=== PATIENT | male | born 1985 | race Caucasian/White ===

== ENCOUNTER 2019-05-31 17:41 | Inpatient (IN) ==
[~2019-05-31 17:41] MED LIST: RAPID SEQUENCE INDUCTION BAG ONE
[2019-05-31] MEDS ORDERED: KETAMINE HCL INJ 50 MG/ML 10 ML VIAL ONE (17:46)
[2019-05-31] MEDS ORDERED: LORazepam 2 MG/4 ML VIAL ONE (17:48)
[2019-05-31 18:00] LABS: Basophils # (auto) 0.06 K/uL (0-0.2); Basophils % (auto) 0.4 %; Eosinophils # (auto) 0.01 K/uL (0-0.5); Eosinophils % (auto) 0.1 %; Hematocrit (blood only) 42.9 % (42-52); Hemoglobin 14.6 g/dL (14.0-18.0); Immature Granulocytes # (auto) 0.21 K/uL (0.00-0.02); Immature Granulocytes % (auto) 1.4 %; Lymphocytes # (auto) 1.03 K/uL (1.2-3.4); Lymphocytes % (auto) 6.7 %; Mean Corpuscular Hemoglobin 28.3 pg (25-34); Mean Corpuscular Volume 83.1 fL (80-100); Mean Platelet Volume 9.8 fL (7.4-10.4); Monocytes # (auto) 0.54 K/uL (0.11-0.59); Monocytes % (auto) 3.5 %; Neutrophils # (auto) 13.55 K/uL (1.4-6.5); Neutrophils % (auto) 87.9 %; Platelet Count 377 K/uL (130-400); RDW Coefficient of Variation 14.8 % (11.5-14.5); RDW Standard Deviation 44.6 fL (36.4-46.3); Red Blood Count 5.16 M/uL (4.7-6.1)
[2019-05-31 18:18] LABS: Alanine Aminotransferase 34 U/L (12-78); Albumin Level 4.2 gm/dl (3.4-5.0); Aspartate Aminotransferase 26 U/L (15-37); BUN Creatinine Ratio 7.9 (10-20); Blood Urea Nitrogen 12 mg/dl (7-18); Calcium 9.7 mg/dl (8.5-10.1); Carbon Dioxide 19 mmol/L (21-32); Chloride 104 mmol/L (98-107); Est GFR (African American) 69.4; Est GFR (Non-African American) 59.9; Glucose 155 mg/dl (70-99); Magnesium 2.6 mg/dl (1.8-2.4); Potassium 3.8 mmol/L (3.5-5.1); Sodium 138 mmol/L (136-145)
[2019-05-31 18:22] LABS: D Dimer 13840 ug/L FEU (0-500)
[2019-05-31 18:23] LABS: Albumin Globulin Ratio 1.1 (0.9-2); Alkaline Phosphatase 156 U/L (45-117); Bilirubin,Total 0.5 mg/dl (0.2-1); Creatine Kinase 243 U/L (39-308); Total Protein 8.2 gm/dl (6.4-8.2); Troponin I < 0.015 ng/ml (0-0.045)
[2019-05-31] MEDS ORDERED: SODIUM CHLORIDE 0.9% 1000ML 1,000 ML IV ONE (18:23)
--- NOTE | 2019-05-31 18:33 | Emergency Department Note ---
History of Present Illness General Chief complaint: Respiratory Arrest Stated complaint: post arrest/ excited delirium Time Seen by Provider: 05/31/19 17:51 Source: patient, family and EMS Mode of arrival: EMS Limitations: altered mental status History of Present Illness Provider complaint: Left shoulder pain Onset (ago): minute(s) (Prior to arrival) Location: upper extremity Radiation: non-radiation Severity: moderate Pain Consistency: + constant Quality: + sharp Exacerbated By: + movement Associated symptoms: + chest pain, + seizure and + shortness of breath; no cough, no fever/chills, no headaches and no nausea/vomiting This is a 33-year-old male with a history of benzodiazepine and Adderall abuse presenting with a seizure. History was obtained from EMS as well as the patient once he became awake and his parents over the telephone. The patient has a prior history of seizure approximately 5 years ago. His father states that he was walking and suddenly developed a seizure. He was worked up at a [facility] hospital at this time with no determined etiology. He has not had a seizure since until today. His family states that about 2 years ago the patient collapsed at a fast food restaurant and was given Narcan and then recovered and never saw a doctor at that time. No seizure activity was noted at that time. The patient states that he does abuse Xanax but stopped using it about a week ago. The patient did drive from [place] where he lives. He has been driving 10 hours a day. He denies any leg swelling or pain. The patient has had no fever, cough or congestion. He has had no known exposure to coded. He does state that today he developed some chest pain rating to his back as well as some shortness of breath. According to his parents he was doing well yesterday and unpacked. He arrived 2 days ago. Today he seemed lethargic. His mother thought maybe he might be under the influence of drugs. He was in his room and his father thought he was looking for the cat. The patient had leaned over and then suddenly fell onto his left shoulder. He had seizure-like activity: He became very stiff and started to shake all over. This lasted about 2 to 3 minutes. Afterwards he was extremely combative. His father states that he did not appear to hit his head. The patient denies any headache or neck pain at this time. He states that his left shoulder is hurting him. EMS noted that they thought his left shoulder was dislocated and that it went back in when they transported him. The patient was extremely combative and they could not get him to the ambulance so they called me for medical command. They had not mentioned the seizure-like activity and reported to him as a respiratory arrest and possible drug abuse and so I did order 200 mg of ketamine IM for possible excited delirium. Home Medications Home Medications Medication Instructions Recorded Confirmed Type bupropion HCl [Wellbutrin XL] 300 mg PO QAM 05/31/19 05/31/19 History Allergies Allergy/AdvReac Type Severity Reaction Status Date / Time No Known Allergies Allergy Unverified 05/31/19 18:36 Past Med/Surg History Medical History (Updated 05/31/19 @ 20:04 by Jun Lamar MD) Polysubstance abuse (Acute) Social History (Updated 05/31/19 @ 18:31 by Jun Lamar MD) Current Living Situation: Alone Smoking Status: Unknown if ever smoked Hx Substance Use: Yes Review of Systems See HPI for pertinent positives & negatives. and A total of 10 systems reviewed and were otherwise negative Physical Exam Vital Signs Vital Signs - 24 hr 05/31/19 17:34 05/31/19 17:43 05/31/19 17:44 Temperature Temperature Source Pulse Rate 101 H 110 H Pulse Rate from SpO2 Sensor 103 H Respiratory Rate 18 15 Respiratory Effort / Characteristics Non-Labored Spontaneous Respiratory Depth Normal Respiratory Pattern Regular Blood Pressure 157/96 H 157/96 H Blood Pressure Mean 116 126 Pulse Oximetry 99 99 Oxygen Delivery Method Room Air Room Air Sepsis New/Unexplained Change in Mental Status Yes Sepsis Action Taken by Nursing No Action Required 05/31/19 17:51 05/31/19 18:00 05/31/19 18:10 Temperature 37.4 C Temperature Source Oral Pulse Rate 96 H 98 H Pulse Rate from SpO2 Sensor 93 H 98 H Respiratory Rate 17 19 Respiratory Effort / Characteristics Respiratory Depth Respiratory Pattern Blood Pressure 150/95 H 148/80 H Blood Pressure Mean 104 124 Pulse Oximetry 98 98 Oxygen Delivery Method Room Air Room Air Room Air Sepsis New/Unexplained Change in Mental Status Sepsis Action Taken by Nursing 05/31/19 18:15 05/31/19 18:30 05/31/19 18:56 Temperature Temperature Source Pulse Rate 97 H 95 H 90 Pulse Rate from SpO2 Sensor 97 H 93 H 92 H Respiratory Rate 21 15 14 Respiratory Effort / Characteristics Respiratory Depth Respiratory Pattern Blood Pressure 147/91 H Blood Pressure Mean 122 Pulse Oximetry 99 100 100 Oxygen Delivery Method Room Air Room Air Room Air Sepsis New/Unexplained Change in Mental Status Sepsis Action Taken by Nursing 05/31/19 19:00 05/31/19 19:10 05/31/19 19:20 Temperature Temperature Source Pulse Rate 90 94 H 87 Pulse Rate from SpO2 Sensor 89 95 H 87 Respiratory Rate 13 13 16 Respiratory Effort / Characteristics Respiratory Depth Respiratory Pattern Blood Pressure 147/91 H 169/85 H 157/95 H Blood Pressure Mean 111 117 108 Pulse Oximetry 100 100 100 Oxygen Delivery Method Room Air Room Air Room Air Sepsis New/Unexplained Change in Mental Status Sepsis Action Taken by Nursing Initial examination was severely limited at the patient was nonverbal. This exam was taken 40 minutes after arrival when the patient was more awake and alert. Constitutional: Vital signs reviewed. Eyes: Pupils are equal round reactive to light. Conjunctiva are noninjected. ENT: Pharynx is clear without erythema or exudate. Mucous membranes are moist. Neck supple without meningeal signs. No midline tenderness to the cervical spine. Respiratory: Clear to auscultation bilaterally. Breath sounds are equal bilaterally. Cardiovascular: Regular rate and rhythm. No rubs or gallops. GI: Soft, nondistended and nontender. Bowel sounds are present. Musculoskeletal: No peripheral edema. No lower extremity tenderness. Te nderness to the left shoulder. NVI distally. Integumentary: No cyanosis. or jaundice. Neurologic: The patient is awake and alert. Cranial nerves II-XII are intact. Motor is 5 out of 5 all extremities. Sensation is intact to light touch all extremities. Normal speech. Normal gait. No pronator drift. Psychiatric: Normal affect. Procedures Orthopedic Joint Reduction Joint #1: Time Out Performed: Yes Side: left Joint Reduction Location: shoulder Analgesia: other (Dilaudid 1 mg IV) Technique used: traction/counter-traction (The left arm was held in adduction with the elbow flexed at 90 degrees. I pulled traction downward while abducting and internally rotating the shoulder and the shoulder reduced easily.) Post-reduction neuro exam: intact Post-reduction vascular: intact Post Reduction X-Ray Obtained: Yes Post Reduction X-Ray Results: reduced Splint Applied: Yes Patient Tolerated Procedure: well Course Administered Medications Ioversol (Optiray 320 125ml) 119 ml IV ONCE PRN PRN Reason: Interaction Checking Stop: 06/04/19 18:38 Last Admin: 05/31/19 18:40 Dose: 119 ml Documented by: [id number] Discontinued Medications Hydromorphone HCl (Dilaudid) Confirm Administered Dose 1 mg .ROUTE .STK-MED ONE Stop: 05/31/19 19:39 Last Admin: 05/31/19 19:45 Dose: 1 mg Documented by: [id number] Sodium Chloride (Nss 1000ml) 1,000 mls @ 999 mls/hr IV .Q1H1M ONE Stop: 05/31/19 19:23 Last Infusion: 05/31/19 19:46 Dose: 0 mls/hr Documented by: [id number] Admin: 05/31/19 18:52 Dose: 999 mls/hr Documented by: [id number] Ketamine HCl (Ketalar Steri-Vial) Confirm Administered Dose 500 mg .ROUTE .STK- MED ONE Stop: 05/31/19 17:47 Last Admin: 05/31/19 17:58 Dose: Not Given Documented by: [id number] Lorazepam (Ativan) Confirm Administered Dose 2 mg .ROUTE .STK-MED ONE Stop: 05/31/19 17:49 Last Increment: 05/31/19 17:52 Dose: 1 mg Documented by: [id number] Miscellaneous () Confirm Administered Dose 1 ea .ROUTE .STK-MED ONE Stop: 05/31/19 17:31 Last Admin: 05/31/19 17:58 Dose: Not Given Documented by: [id number] Morphine Sulfate (Morphine Sulfate) 4 mg IV NOW STA Stop: 05/31/19 18:51 Last Admin: 05/31/19 18:54 Dose: 4 mg Documented by: [id number] Ondansetron HCl (Zofran) 4 mg IV NOW STA Stop: 05/31/19 18:51 Last Admin: 05/31/19 18:54 Dose: 4 mg Documented by: [id number] Critical Care Time Total Critical Care Time: 60 I have personally spent approximately 60 minutes of critical care time in the direct management of this patient with altered mental status and respiratory arrest. This includes bedside care, interpretation of diagnostic studies and testing, discussion with consultants and patient, and other required patient management activities. This time is in excess of all separately billable procedures. Medical Decision Making Differential Diagnosis Seizure, intracranial mass, intracranial hemorrhage, encephalopathy, pulmonary embolism, DVT, drug abuse Medical Records Attestation: I reviewed the patient's medical records. I did perform a limited focused review of portions of the patient's old chart on the electronic medical record. The patient has had no recent pertinent visits to this hospital. Home Medications Current Medication List: was personally reviewed by me Laboratory Data Attestation: I reviewed the patient's lab results. Result diagrams: 05/31/19 17:45 05/31/19 17:45 Lab Results 05/31/19 05/31/19 05/31/19 Range/Units 16:45 17:45 17:45 WBC (4.8-10.8) K/uL RBC (4.7-6.1) M/uL Hgb (14.0-18.0) g/dL Hct (42-52) % MCV (80-100) fL MCH (25-34) pg MCHC (32-36) g/dL RDW Std Deviation (36.4-46.3) fL RDW Coeff of Stiven (11.5-14.5) % Plt Count (130-400) K/uL MPV (7.4-10.4) fL Immature Gran % (Auto) % Neut % (Auto) % Lymph % (Auto) % Schleicher % (Auto) % Eos % (Auto) % Baso % (Auto) % Immature Gran # (Auto) (0.00-0.02) K/uL Neut # (Auto) (1.4-6.5) K/uL Lymph # (Auto) (1.2-3.4) K/uL Schleicher # (Auto) (0.11-0.59) K/uL Eos # (Auto) (0-0.5) K/uL Baso # (Auto) (0-0.2) K/uL D-Dimer 53705 H* (0-500) ug/L FEU Sodium 138 (136-145) mmol/L Potassium 3.8 (3.5-5.1) mmol/L Chloride 104 (98-107) mmol/L Carbon Dioxide 19 L (21-32) mmol/L Anion Gap 15.0 H (3-11) BUN 12 (7-18) mg/dl Creatinine 1.50 H (0.6-1.4) mg/dl Est Cr Clr Drug Dosing Not Reportable Est GFR ( Amer) 69.4 Est GFR (Non-Af Amer) 59.9 BUN/Creatinine Ratio 7.9 L (10-20) Glucose 155 H (70-99) mg/dl POC Glucose (70-99) mg/dl Lactate (0.4-2.0) mmol/L Calcium 9.7 (8.5-10.1) mg/dl Magnesium 2.6 H (1.8-2.4) mg/dl Total Bilirubin 0.5 (0.2-1) mg/dl AST 26 (15-37) U/L ALT 34 (12-78) U/L Alkaline Phosphatase 156 H (45-117) U/L Lactate Dehydrogenase (87-241) U/L Total Creatine Kinase 243 (39-308) U/L Troponin I < 0.015 (0-0.045) ng/ml Total Protein 8.2 (6.4-8.2) gm/dl Albumin 4.2 (3.4-5.0) gm/dl Globulin 4.0 (2.5-4.0) gm/dl Albumin/Globulin Ratio 1.1 (0.9-2) Procalcitonin (0-0.5) ng/ml Urine Color Urine Appearance (Clear) Urine pH (4.5-7.5) Ur Specific [place] (1.000-1.030) Urine Protein (Negative) Urine Glucose (UA) (Negative) Urine Ketones (Negative) Urine Blood (Negative) Urine Nitrite (Negative) Urine Bilirubin (Negative) Urine Urobilinogen (Negative) Ur Leukocyte Esterase (Negative) Urine WBC (Auto) (0-5) /hpf Urine RBC (Auto) (0-4) /hpf U Hyaline Cast (Auto) (0-5) /lpf U Epithel Cells (Auto) (0-5) /lpf Urine Bacteria (Auto) (Negative) Urine Sperm (None Prsent) Salicylates (2.8-20) mg/dl Urine Opiates Screen (Neg) Ur Methadone, Qual (Neg) Acetaminophen (10-30) ug/ml Urine Barbiturates (Neg) Ur Phencyclidine (PCP) (Neg) U Amphetamin/Meth Scrn (Neg) MDMA (Ecstasy) Screen (Neg) U Benzodiazepines Scrn (Neg) Ur Cocaine Metabolite (Neg) U Marijuana (THC) Screen (Neg) Ethyl Alcohol mg/dL (0-3) mg/dl Adenovirus (PCR) (NotDetected) B. pertussis DNA (PCR) (NotDetected) B.parapertussis DNA PCR (NotDetected) C. pneumoniae DNA (PCR) (NotDetected) Coronavirus OC43 (PCR) (NotDetected) Coronavirus HKU1 (PCR) (NotDetected) Coronavirus 229E (PCR) (NotDetected) Coronavirus NL63 (PCR) (NotDetected) Human Metapneumovir PCR (NotDetected) Influenza Type A (PCR) (NotDetected) Influenza Type B (PCR) (NotDetected) M. pneumoniae (PCR) (NotDetected) Parainfluenza 1 (PCR) (NotDetected) Parainfluenza 2 (PCR) (NotDetected) Parainfluenza 3 (PCR) (NotDetected) Parainfluenza 4 (PCR) (NotDetected) RSV (PCR) (NotDetected) Entero/Rhino (PCR) (NotDetected) 05/31/19 05/31/19 05/31/19 Range/Units 17:45 17:45 17:45 WBC 15.40 H (4.8-10.8) K/uL RBC 5.16 (4.7-6.1) M/uL Hgb 14.6 (14.0-18.0) g/dL Hct 42.9 (42-52) % MCV 83.1 (80-100) fL MCH 28.3 (25-34) pg MCHC 34.0 (32-36) g/dL RDW Std Deviation 44.6 (36.4-46.3) fL RDW Coeff of Stiven 14.8 H (11.5-14.5) % Plt Count 377 (130-400) K/uL MPV 9.8 (7.4-10.4) fL Immature Gran % (Auto) 1.4 % Neut % (Auto) 87.9 % Lymph % (Auto) 6.7 % Schleicher % (Auto) 3.5 % Eos % (Auto) 0.1 % Baso % (Auto) 0.4 % Immature Gran # (Auto) 0.21 H (0.00-0.02) K/uL Neut # (Auto) 13.55 H (1.4-6.5) K/uL Lymph # (Auto) 1.03 L (1.2-3.4) K/uL Schleicher # (Auto) 0.54 (0.11-0.59) K/uL Eos # (Auto) 0.01 (0-0.5) K/uL Baso # (Auto) 0.06 (0-0.2) K/uL D-Dimer (0-500) ug/L FEU Sodium (136-145) mmol/L Potassium (3.5-5.1) mmol/L Chloride (98-107) mmol/L Carbon Dioxide (21-32) mmol/L Anion Gap (3-11) BUN (7-18) mg/dl Creatinine (0.6-1.4) mg/dl Est Cr Clr Drug Dosing Est GFR ( Amer) Est GFR (Non-Af Amer) BUN/Creatinine Ratio (10-20) Glucose (70-99) mg/dl POC Glucose (70-99) mg/dl Lactate (0.4-2.0) mmol/L Calcium (8.5-10.1) mg/dl Magnesium (1.8-2.4) mg/dl Total Bilirubin (0.2-1) mg/dl AST (15-37) U/L ALT (12-78) U/L Alkaline Phosphatase (45-117) U/L Lactate Dehydrogenase 342 H (87-241) U/L Total Creatine Kinase (39-308) U/L Troponin I (0-0.045) ng/ml Total Protein (6.4-8.2) gm/dl Albumin (3.4-5.0) gm/dl Globulin (2.5-4.0) gm/dl Albumin/Globulin Ratio (0.9-2) Procalcitonin < 0.05 (0-0.5) ng/ml Urine Color Urine Appearance (Clear) Urine pH (4.5-7.5) Ur Specific [place] (1.000-1.030) Urine Protein (Negative) Urine Glucose (UA) (Negative) Urine Ketones (Negative) Urine Blood (Negative) Urine Nitrite (Negative) Urine Bilirubin (Negative) Urine Urobilinogen (Negative) Ur Leukocyte Esterase (Negative) Urine WBC (Auto) (0-5) /hpf Urine RBC (Auto) (0-4) /hpf U Hyaline Cast (Auto) (0-5) /lpf U Epithel Cells (Auto) (0-5) /lpf Urine Bacteria (Auto) (Negative) Urine Sperm (None Prsent) Salicylates (2.8-20) mg/dl Urine Opiates Screen (Neg) Ur Methadone, Qual (Neg) Acetaminophen (10-30) ug/ml Urine Barbiturates (Neg) Ur Phencyclidine (PCP) (Neg) U Amphetamin/Meth Scrn (Neg) MDMA (Ecstasy) Screen (Neg) U Benzodiazepines Scrn (Neg) Ur Cocaine Metabolite (Neg) U Marijuana (THC) Screen (Neg) Ethyl Alcohol mg/dL (0-3) mg/dl Adenovirus (PCR) (NotDetected) B. pertussis DNA (PCR) (NotDetected) B.parapertussis DNA PCR (NotDetected) C. pneumoniae DNA (PCR) (NotDetected) Coronavirus OC43 (PCR) (NotDetected) Coronavirus HKU1 (PCR) (NotDetected) Coronavirus 229E (PCR) (NotDetected) Coronavirus NL63 (PCR) (NotDetected) Human Metapneumovir PCR (NotDetected) Influenza Type A (PCR) (NotDetected) Influenza Type B (PCR) (NotDetected) M. pneumoniae (PCR) (NotDetected) Parainfluenza 1 (PCR) (NotDetected) Parainfluenza 2 (PCR) (NotDetected) Parainfluenza 3 (PCR) (NotDetected) Parainfluenza 4 (PCR) (NotDetected) RSV (PCR) (NotDetected) Entero/Rhino (PCR) (NotDetected) 05/31/19 05/31/19 05/31/19 Range/Units 17:45 17:54 17:55 WBC (4.8-10.8) K/uL RBC (4.7-6.1) M/uL Hgb (14.0-18.0) g/dL Hct (42-52) % MCV (80-100) fL MCH (25-34) pg MCHC (32-36) g/dL RDW Std Deviation (36.4-46.3) fL RDW Coeff of Stiven (11.5-14.5) % Plt Count (130-400) K/uL MPV (7.4-10.4) fL Immature Gran % (Auto) % Neut % (Auto) % Lymph % (Auto) % Schleicher % (Auto) % Eos % (Auto) % Baso % (Auto) % Immature Gran # (Auto) (0.00-0.02) K/uL Neut # (Auto) (1.4-6.5) K/uL Lymph # (Auto) (1.2-3.4) K/uL Schleicher # (Auto) (0.11-0.59) K/uL Eos # (Auto) (0-0.5) K/uL Baso # (Auto) (0-0.2) K/uL D-Dimer (0-500) ug/L FEU Sodium (136-145) mmol/L Potassium (3.5-5.1) mmol/L Chloride (98-107) mmol/L Carbon Dioxide (21-32) mmol/L Anion Gap (3-11) BUN (7-18) mg/dl Creatinine (0.6-1.4) mg/dl Est Cr Clr Drug Dosing Est GFR ( Amer) Est GFR (Non-Af Amer) BUN/Creatinine Ratio (10-20) Glucose (70-99) mg/dl POC Glucose 158 H (70-99) mg/dl Lactate (0.4-2.0) mmol/L Calcium (8.5-10.1) mg/dl Magnesium (1.8-2.4) mg/dl Total Bilirubin (0.2-1) mg/dl AST (15-37) U/L ALT (12-78) U/L Alkaline Phosphatase (45-117) U/L Lactate Dehydrogenase (87-241) U/L Total Creatine Kinase (39-308) U/L Troponin I (0-0.045) ng/ml Total Protein (6.4-8.2) gm/dl Albumin (3.4-5.0) gm/dl Globulin (2.5-4.0) gm/dl Albumin/Globulin Ratio (0.9-2) Procalcitonin (0-0.5) ng/ml Urine Color Urine Appearance (Clear) Urine pH (4.5-7.5) Ur Specific [place] (1.000-1.030) Urine Protein (Negative) Urine Glucose (UA) (Negative) Urine Ketones (Negative) Urine Blood (Negative) Urine Nitrite (Negative) Urine Bilirubin (Negative) Urine Urobilinogen (Negative) Ur Leukocyte Esterase (Negative) Urine WBC (Auto) (0-5) /hpf Urine RBC (Auto) (0-4) /hpf U Hyaline Cast (Auto) (0-5) /lpf U Epithel Cells (Auto) (0-5) /lpf Urine Bacteria (Auto) (Negative) Urine Sperm (None Prsent) Salicylates < 1.7 L (2.8-20) mg/dl Urine Opiates Screen (Neg) Ur Methadone, Qual (Neg) Acetaminophen < 2 L (10-30) ug/ml Urine Barbiturates (Neg) Ur Phencyclidine (PCP) (Neg) U Amphetamin/Meth Scrn (Neg) MDMA (Ecstasy) Screen (Neg) U Benzodiazepines Scrn (Neg) Ur Cocaine Metabolite (Neg) U Marijuana (THC) Screen (Neg) Ethyl Alcohol mg/dL (0-3) mg/dl Adenovirus (PCR) Not Detected (NotDetected) B. pertussis DNA (PCR) Not Detected (NotDetected) B.parapertussis DNA PCR Not Detected (NotDetected) C. pneumoniae DNA (PCR) Not Detected (NotDetected) Coronavirus OC43 (PCR) Not Detected (NotDetected) Coronavirus HKU1 (PCR) Not Detected (NotDetected) Coronavirus 229E (PCR) Not Detected (NotDetected) Coronavirus NL63 (PCR) Not Detected (NotDetected) Human Metapneumovir PCR Not Detected (NotDetected) Influenza Type A (PCR) Not Detected (NotDetected) Influenza Type B (PCR) Not Detected (NotDetected) M. pneumoniae (PCR) Not Detected (NotDetected) Parainfluenza 1 (PCR) Not Detected (NotDetected) Parainfluenza 2 (PCR) Not Detected (NotDetected) Parainfluenza 3 (PCR) Not Detected (NotDetected) Parainfluenza 4 (PCR) Not Detected (NotDetected) RSV (PCR) Not Detected (NotDetected) Entero/Rhino (PCR) Not Detected (NotDetected) 05/31/19 05/31/19 05/31/19 Range/Units 18:06 18:15 18:25 WBC (4.8-10.8) K/uL RBC (4.7-6.1) M/uL Hgb (14.0-18.0) g/dL Hct (42-52) % MCV (80-100) fL MCH (25-34) pg MCHC (32-36) g/dL RDW Std Deviation (36.4-46.3) fL RDW Coeff of Stiven (11.5-14.5) % Plt Count (130-400) K/uL MPV (7.4-10.4) fL Immature Gran % (Auto) % Neut % (Auto) % Lymph % (Auto) % Schleicher % (Auto) % Eos % (Auto) % Baso % (Auto) % Immature Gran # (Auto) (0.00-0.02) K/uL Neut # (Auto) (1.4-6.5) K/uL Lymph # (Auto) (1.2-3.4) K/uL Schleicher # (Auto) (0.11-0.59) K/uL Eos # (Auto) (0-0.5) K/uL Baso # (Auto) (0-0.2) K/uL D-Dimer (0-500) ug/L FEU Sodium (136-145) mmol/L Potassium (3.5-5.1) mmol/L Chloride (98-107) mmol/L Carbon Dioxide (21-32) mmol/L Anion Gap (3-11) BUN (7-18) mg/dl Creatinine (0.6-1.4) mg/dl Est Cr Clr Drug Dosing Est GFR ( Amer) Est GFR (Non-Af Amer) BUN/Creatinine Ratio (10-20) Glucose (70-99) mg/dl POC Glucose (70-99) mg/dl Lactate 5.8 H* (0.4-2.0) mmol/L Calcium (8.5-10.1) mg/dl Magnesium (1.8-2.4) mg/dl Total Bilirubin (0.2-1) mg/dl AST (15-37) U/L ALT (12-78) U/L Alkaline Phosphatase (45-117) U/L Lactate Dehydrogenase (87-241) U/L Total Creatine Kinase (39-308) U/L Troponin I (0-0.045) ng/ml Total Protein (6.4-8.2) gm/dl Albumin (3.4-5.0) gm/dl Globulin (2.5-4.0) gm/dl Albumin/Globulin Ratio (0.9-2) Procalcitonin (0-0.5) ng/ml Urine Color Urine Appearance (Clear) Urine pH (4.5-7.5) Ur Specific [place] (1.000-1.030) Urine Protein (Negative) Urine Glucose (UA) (Negative) Urine Ketones (Negative) Urine Blood (Negative) Urine Nitrite (Negative) Urine Bilirubin (Negative) Urine Urobilinogen (Negative) Ur Leukocyte Esterase (Negative) Urine WBC (Auto) (0-5) /hpf Urine RBC (Auto) (0-4) /hpf U Hyaline Cast (Auto) (0-5) /lpf U Epithel Cells (Auto) (0-5) /lpf Urine Bacteria (Auto) (Negative) Urine Sperm (None Prsent) Salicylates (2.8-20) mg/dl Urine Opiates Screen Neg (Neg) Ur Methadone, Qual Neg (Neg) Acetaminophen (10-30) ug/ml Urine Barbiturates Neg (Neg) Ur Phencyclidine (PCP) Neg (Neg) U Amphetamin/Meth Scrn Neg (Neg) MDMA (Ecstasy) Screen Pos H (Neg) U Benzodiazepines Scrn Pos H (Neg) Ur Cocaine Metabolite Pos H (Neg) U Marijuana (THC) Screen Pos H (Neg) Ethyl Alcohol mg/dL < 3.0 (0-3) mg/dl Adenovirus (PCR) (NotDetected) B. pertussis DNA (PCR) (NotDetected) B.parapertussis DNA PCR (NotDetected) C. pneumoniae DNA (PCR) (NotDetected) Coronavirus OC43 (PCR) (NotDetected) Coronavirus HKU1 (PCR) (NotDetected) Coronavirus 229E (PCR) (NotDetected) Coronavirus NL63 (PCR) (NotDetected) Human Metapneumovir PCR (NotDetected) Influenza Type A (PCR) (NotDetected) Influenza Type B (PCR) (NotDetected) M. pneumoniae (PCR) (NotDetected) Parainfluenza 1 (PCR) (NotDetected) Parainfluenza 2 (PCR) (NotDetected) Parainfluenza 3 (PCR) (NotDetected) Parainfluenza 4 (PCR) (NotDetected) RSV (PCR) (NotDetected) Entero/Rhino (PCR) (NotDetected) 05/31/19 Range/Units 18:25 WBC (4.8-10.8) K/uL RBC (4.7-6.1) M/uL Hgb (14.0-18.0) g/dL Hct (42-52) % MCV (80-100) fL MCH (25-34) pg MCHC (32-36) g/dL RDW Std Deviation (36.4-46.3) fL RDW Coeff of Stiven (11.5-14.5) % Plt Count (130-400) K/uL MPV (7.4-10.4) fL Immature Gran % (Auto) % Neut % (Auto) % Lymph % (Auto) % Schleicher % (Auto) % Eos % (Auto) % Baso % (Auto) % Immature Gran # (Auto) (0.00-0.02) K/uL Neut # (Auto) (1.4-6.5) K/uL Lymph # (Auto) (1.2-3.4) K/uL Schleicher # (Auto) (0.11-0.59) K/uL Eos # (Auto) (0-0.5) K/uL Baso # (Auto) (0-0.2) K/uL D-Dimer (0-500) ug/L FEU Sodium (136-145) mmol/L Potassium (3.5-5.1) mmol/L Chloride (98-107) mmol/L Carbon Dioxide (21-32) mmol/L Anion Gap (3-11) BUN (7-18) mg/dl Creatinine (0.6-1.4) mg/dl Est Cr Clr Drug Dosing Est GFR ( Amer) Est GFR (Non-Af Amer) BUN/Creatinine Ratio (10-20) Glucose (70-99) mg/dl POC Glucose (70-99) mg/dl Lactate (0.4-2.0) mmol/L Calcium (8.5-10.1) mg/dl Magnesium (1.8-2.4) mg/dl Total Bilirubin (0.2-1) mg/dl AST (15-37) U/L ALT (12-78) U/L Alkaline Phosphatase (45-117) U/L Lactate Dehydrogenase (87-241) U/L Total Creatine Kinase (39-308) U/L Troponin I (0-0.045) ng/ml Total Protein (6.4-8.2) gm/dl Albumin (3.4-5.0) gm/dl Globulin (2.5-4.0) gm/dl Albumin/Globulin Ratio (0.9-2) Procalcitonin (0-0.5) ng/ml Urine Color Yellow Urine Appearance Clear (Clear) Urine pH 5.5 (4.5-7.5) Ur Specific [place] 1.018 (1.000-1.030) Urine Protein Trace H (Negative) Urine Glucose (UA) Negative (Negative) Urine Ketones 1+ H (Negative) Urine Blood Trace H (Negative) Urine Nitrite Negative (Negative) Urine Bilirubin Negative (Negative) Urine Urobilinogen Negative (Negative) Ur Leukocyte Esterase Negative (Negative) Urine WBC (Auto) 1-5 (0-5) /hpf Urine RBC (Auto) 0-4 (0-4) /hpf U Hyaline Cast (Auto) 0 (0-5) /lpf U Epithel Cells (Auto) 0-5 (0-5) /lpf Urine Bacteria (Auto) Negative (Negative) Urine Sperm Present A (None Prsent) Salicylates (2.8-20) mg/dl Urine Opiates Screen (Neg) Ur Methadone, Qual (Neg) Acetaminophen (10-30) ug/ml Urine Barbiturates (Neg) Ur Phencyclidine (PCP) (Neg) U Amphetamin/Meth Scrn (Neg) MDMA (Ecstasy) Screen (Neg) U Benzodiazepines Scrn (Neg) Ur Cocaine Metabolite (Neg) U Marijuana (THC) Screen (Neg) Ethyl Alcohol mg/dL (0-3) mg/dl Adenovirus (PCR) (NotDetected) B. pertussis DNA (PCR) (NotDetected) B.parapertussis DNA PCR (NotDetected) C. pneumoniae DNA (PCR) (NotDetected) Coronavirus OC43 (PCR) (NotDetected) Coronavirus HKU1 (PCR) (NotDetected) Coronavirus 229E (PCR) (NotDetected) Coronavirus NL63 (PCR) (NotDetected) Human Metapneumovir PCR (NotDetected) Influenza Type A (PCR) (NotDetected) Influenza Type B (PCR) (NotDetected) M. pneumoniae (PCR) (NotDetected) Parainfluenza 1 (PCR) (NotDetected) Parainfluenza 2 (PCR) (NotDetected) Parainfluenza 3 (PCR) (NotDetected) Parainfluenza 4 (PCR) (NotDetected) RSV (PCR) (NotDetected) Entero/Rhino (PCR) (NotDetected) Imaging Data Attestation: I personally reviewed and interpreted this imaging study as follows: My Impression: Postreduction x-ray of the left shoulder shows good anatomic alignment. No dislocation is noted. Impaction fracture of the humeral head noted. Radiologist's Impression: CT head/brain wo con CLINICAL HISTORY: 33 years-old Male presenting with ams, eval for bleed. TECHNIQUE: Multidetector CT imaging of the head was performed without the use of intravenous contrast. IV contrast: None. One or more dose lowering techniques were used consistent with the principles of ALARA (as low as reasonably a chievable), including automatic exposure control, mA or kV adjustment to individual patient size, and/or use of iterative reconstruction. COMPARISON: None. CT DOSE (mGy.cm): The estimated cumulative dose is 729.78 mGycm. FINDINGS: Product Marketing Director topogram: Unremarkable. Ventricles and sulci normal in size apart from anoop cisterna magna. No hemorrhage. Brain parenchyma normal in appearance with preserved ramey-white differentiation. No acute territorial infarct. No mass effect or midline shift. No extra-axial fluid collection. Limited aerated secretions in the right maxillary sinus. Calvarium intact. IMPRESSION: 1. No acute intracranial abnormality. 2. Limited aerated secretions in the right maxillary sinus. Given the limited extent, acute sinusitis is considered unlikely. ACT 112: Negative or not required by law. Electronically signed by: Chaitanya Nelson M.D. 05/31/2019 6:[address] angio chest PE protocol CLINICAL HISTORY: 33 years-old Male presenting with atypical chest pain, resp iratory arrest, CPR at home, seizure clinical concern for pulmonary embolus. TECHNIQUE: Multidetector CT angiography of the chest was performed after administration of intravenous contrast. 3-D volumetric and/or maximum intensity projection (MIP) images were subsequently reconstructed for review. IV contrast: 119 mL of Optiray 320. One or more dose lowering techniques were used consistent with the principles of ALARA (as low as reasonably achievable), including automatic exposure control, mA or kV adjustment to individual patient size, and/or use of iterative reconstruction. COMPARISON: None. CT DOSE (mGy.cm): The estimated cumulative dose is 731.68 mGycm. FINDINGS: Product Marketing Director topogram: Unremarkable. Pulmonary vasculature: The study is adequate for assessment of the pulmonary vascular tree. No filling defect within the pulmonary arteries to suggest embolus. Main pulmonary artery is not enlarged. No flattening of the interventricular septum. No intracardiac filling defect. No reflux of contrast into the hepatic veins. Remaining chest: Soft tissues: Normal thyroid and thoracic inlet. No axillary, supraclavicular, mediastinal, or hilar lymphadenopathy. Normal aorta. Normal heart size. No pericardial or pleural effusion. Upper abdomen normal. Lungs and airways: No pneumothorax. Central airways patent. Pulmonary arteries are not significantly enlarged relative to adjacent bronchi. No interlobular septal thickening. No focal infiltrate or nodule within the visualized portion of the lungs allowing for exclusion of the inferior most lung bases. Musculoskeletal: Slight compression deformities of the superior endplates of several mid to lower thoracic vertebral bodies, namely T6-T10. IMPRESSION: 1. No evidence of pulmonary embolus. 2. Subtle compression deformities of the superior endplates of T6-T10. Minimal compression fractures are not excluded. Correlate with spinal tenderness. 3. No other evidence of acute intrathoracic pathology. ACT 112: Negative or not required by law. Electronically signed by: Chaitanya Nelson M.D. 05/31/2019 7:11 PM XR shoulder LT min 2V routine CLINICAL HISTORY: 33 years-old Male presenting with fall eval for fx. TECHNIQUE: Internal rotation, external rotation, and Grashey views of the left shoulder were obtained. COMPARISON: None. FINDINGS: Glenohumeral and acromioclavicular joints congruent. The humeral head at the articular surface appears irregular and blunted suggesting an impaction deformity. The humeral head is subtly situated posterior to the glenoid suggesting posterior dislocation. Acromioclavicular joint congruent. No advanced degenerative change. No radiographic soft tissue abnormality. IMPRESSION: 1. Findings highly concerning for current or recent posterior glenohumeral joint dislocation. Axillary or transscapular Y view recommended for better assessment of suspected dislocation. 2. Morphology of the humeral head may suggest impaction fracture at the articular surface. ACT 112: Negative or not required by law. ECG Data Attestation: I personally reviewed and interpreted this ECG as follows: Indication: + chest pain Rate (beats per minute): 100 Rhythm: + normal sinus ECG Intervals/blocks: no First degree AV block and no Normal QT ECG ST segments: no ST elevation ECG Findings: no PVCs Blood Pressure Blood Pressure Findings: Elevated blood pressure Blood Pressure Disposition: Referred to patients primary care provider [facility] Narrative I did provide prehospital medical command for the patient. Initially according to EMS the patient had just arrived from [place] 2 days ago and was not feeling well today and felt warm. He then collapsed and had respiratory arrest and the family performed CPR. Upon their arrival the patient was very combative and possibly under the influence of drugs as a history of polysubstance abuse. I treated this as a possible excited delirium or encephalopathy from COVID-19 and recommended the patient be given ketamine IM. He was given 200 mg ketamine IM prior to arrival. I did evaluate the patient immediately upon arrival as noted above. Initial orders were placed. I did then call the patient's family and obtain further history. Apparently the patient drove from [place], driving about 10 hours a day. He arrived 2 days ago and was well yesterday without any complaints. Today he seemed lethargic and possibly under the influence of drugs. The patient then collapsed and had a tonic-clonic seizure lasting 2 to 3 minutes and likely became postictal afterwards. His parents stated that he did have a seizure in [place] 5 years ago of undetermined etiology. He has never been on any seizure medications. He also has a history of Xanax and Adderall abuse. His family noted that approximately 2 years ago the patient had an opiate overdose requiring Narcan but never went to the hospital at that time. IV access was established. The patient became more combative after the IV and so he was given Ativan 1 mg IV here. Seizure precautions were observed. The patient was placed on a continuous cardiac nurse. Cardiac monitoring: Indication: History of respiratory arrest and altered mental status with sedation on board Rate and rhythm: Normal sinus rhythm with a rate of 95 initial examination was very limited but about 35 minutes into his ED stay the patient became awake and alert. He stated to me that he stopped using Xanax about a week ago. He confirms that he did have a seizure in [place] 5 years ago. He denies having any flulike symptoms. He denies fever, cough, congestion or headache. He states that he has not been exposed to cope with it as far as he knows. He did mention that he developed some chest pain with radiation to his back and some shortness of breath. He denies any leg swelling or pain. I did order and personally review the patient's 12-lead EKG as described above. I did order and personally reviewed the images of the patient's shoulder x-ray as described above. He does appear to have a posterior dislocation. I did order and review the patient's blood work as noted in the electronic medical record. He has leukocytosis which may be secondary to his seizure. He has a significantly elevated d-dimer of over 13,000. He also has a negative troponin. Creatinine is slightly elevated 1.5. He was given a liter fluid bolus with normal saline IV. I did order a CT of head and CT angiogram of the chest. I did review the images myself as well as the radiology report as described above. CT of the head was negative for acute process. CT of the chest shows no evidence of pulmonary embolus. He does have subtle compression deformities of T5 to T10. On reexamination patient states that his back does not really hurt him. He has no tenderness to the midline thoracic or lumbar spine. He denies any history of trauma prior to today. He does complain of continued shoulder pain. He was initially given 4 mg of morphine and 4 mg of Zofran for pain. He is continues to have pain and so I did give him an additional Dilaudid 1 mg IV and then performed shoulder reduction as noted above. Postreduction x-ray per my interpretation demonstrates good anatomic alignment of the shoulder. He is placed in a sling. The patient noted that since he had a seizure in [place] 5 years ago he has had pain on and off to the left shoulder. I did discuss the case with the hospitalist and case management manager. Impression & Plan Seizure, Polysubstance abuse, Respiratory arrest, Closed posterior dislocation of left shoulder, Chest pain, Fracture of head of left humerus Discharge Plan Visit Data Chief Complaint: Respiratory Arrest Stated Complaint: post arrest/ excited delirium ED Provider: Jun Lamar Discharge Problem: Seizure, Polysubstance abuse, Respiratory arrest, Closed posterior dislocation of left shoulder, Chest pain, Fracture of head of left humerus Patient Disposition: Being Evaluated by Hospitalist Forms Stand Alone Forms: My [facility] Prescriptions Prescriptions: No Action bupropion HCl [Wellbutrin XL] 300 mg Tablet Extended Release 24 Hr 300 mg PO QAM RF: 0 Referrals Referrals: PCP,NO [Primary Care Provider] - Discharge Problem: Closed posterior dislocation of left shoulder Qualifiers: Encounter type: initial encounter Qualified Code(s): S43.025A - Posterior dislocation of left humerus, initial encounter Chest pain Qualifiers: Chest pain type: unspecified Qualified Code(s): R07.9 - Chest pain, unspecified Fracture of head of left humerus Qualifiers: Encounter type: initial encounter Fracture type: closed Qualified Code(s): S42.292A - Other displaced fracture of upper end of left humerus, initial encounter for closed fracture
[2019-05-31 18:34] LABS: Acetaminophen < 2 ug/ml (10-30); Salicylate < 1.7 mg/dl (2.8-20)
[2019-05-31] MEDS ORDERED: OPTIRAY 320 125ml IV PRN (18:39)
[2019-05-31] MEDS ORDERED: MoRPHine SULFATE 4 MG/ML 1 ML CARP\\VIAL IV STA (18:50)
[2019-05-31] MEDS ORDERED: ONDANSETRON INJ 2 MG/ML 2 ML VIAL IV STA (18:50)
--- NOTE | 2019-05-31 18:58 | CT Scan Report ---
CT head/brain wo con CLINICAL HISTORY: 33 years-old Male presenting with ams, eval for bleed. TECHNIQUE: Multidetector CT imaging of the head was performed without the use of intravenous contrast . IV contrast: None. One or more dose lowering techniques were used consistent with the principles of ALARA (as low as reasonably achievable), including automatic exposure control, mA or kV adjustment t o individual patient size, and/or use of iterative reconstruction. COMPARISON: None. CT DOSE (mGy.cm): The estimated cumulative dose is 729.78 mGycm. FINDINGS: Metal Wire Coating Operator topogram: Unremarkable. Ventricles and sulci normal in size apart from anoop cisterna magna. No hemorrhage. Brain parenchyma n ormal in appearance with preserved ramey-white differentiation. No acute territorial infarct. No mass effect or midline shift. No extra-axial fluid collection. Limited aerated secretions in the right max illary sinus. Calvarium intact. IMPRESSION: 1. No acute intracranial abnormality. 2. Limited aerated secretions in the right maxillary sinus. Given the limited extent, acute sinusiti s is considered unlikely. ACT 112: Negative or not required by law. Electronically signed by: Chaitanya Nelson M.D. 05/31/2019 6:57 PM
[2019-05-31 19:08] LABS: Amphetamines+Metham, Urine Neg (Neg); Barbiturates, Urine Neg (Neg); Benzodiazepine, Urine Pos (Neg); Cocaine, Urine Pos (Neg); MDMA (Ecstacy), Urine Pos (Neg); Methadone, Urine Neg (Neg); Opiate, Urine Neg (Neg); Phencyclidine, Urine Neg (Neg)
--- NOTE | 2019-05-31 19:13 | CT Scan Report ---
CT angio chest PE protocol CLINICAL HISTORY: 33 years-old Male presenting with atypical chest pain, respiratory arrest, CPR at h ome, seizure clinical concern for pulmonary embolus. TECHNIQUE: Multidetector CT angiography of the chest was performed after administration of intravenou s contrast. 3-D volumetric and/or maximum intensity projection (MIP) images were subsequently reconst ructed for review. IV contrast: 119 mL of Optiray 320. One or more dose lowering techniques were used consistent with the principles of ALARA (as low as reasonably achievable), including automatic expos ure control, mA or kV adjustment to individual patient size, and/or use of iterative reconstruction. COMPARISON: None. CT DOSE (mGy.cm): The estimated cumulative dose is 731.68 mGycm. FINDINGS: Photographic Process Worker topogram: Unremarkable. Pulmonary vasculature: The study is adequate for assessment of the pulmonary vascular tree. No filling defect within the pul monary arteries to suggest embolus. Main pulmonary artery is not enlarged. No flattening of the inter ventricular septum. No intracardiac filling defect. No reflux of contrast into the hepatic veins. Remaining chest: Soft tissues: Normal thyroid and thoracic inlet. No axillary, supraclavicular, mediastinal, or hilar lymphadenopathy. Normal aorta. Normal heart size. No pericardial or pleural effusion. Upper abdomen n ormal. Lungs and airways: No pneumothorax. Central airways patent. Pulmonary arteries are not significantly enlarged relative to adjacent bronchi. No interlobular septal thickening. No focal infiltrate or nodu le within the visualized portion of the lungs allowing for exclusion of the inferior most lung bases. Musculoskeletal: Slight compression deformities of the superior endplates of several mid to lower tho racic vertebral bodies, namely T6-T10. IMPRESSION: 1. No evidence of pulmonary embolus. 2. Subtle compression deformities of the superior endplates of T6-T10. Minimal compression fractures are not excluded. Correlate with spinal tenderness. 3. No other evidence of acute intrathoracic pathology. ACT 112: Negative or not required by law. Electronically signed by: Chaitanya Nelson M.D. 05/31/2019 7:11 PM
[2019-05-31 19:26] LABS: Appearance Urine Clear (Clear); Bacteria Urine Automated Negative (Negative); Bilirubin Urine Negative (Negative); Blood Urine Trace (Negative); Cast Urine Automated 0 /lpf (0-5); Color Urine Yellow; Epithelial Cell Urine Auto 0-5 /lpf (0-5); Glucose Urine UA Negative (Negative); Ketones Urine 1+ (Negative); Leukocyte Esterase Urine Negative (Negative); Nitrite Urine Negative (Negative); Protein Urine Trace (Negative); RBC Urine Automated 0-4 /hpf (0-4); Specific Gravity Urine 1.018 (1.000-1.030); Urobilinogen Urine Negative (Negative); pH Urine 5.5 (4.5-7.5)
--- NOTE | 2019-05-31 19:29 | XRay Report ---
XR shoulder LT min 2V routine CLINICAL HISTORY: 33 years-old Male presenting with fall eval for fx. TECHNIQUE: Internal rotation, external rotation, and Grashey views of the left shoulder were obtained . COMPARISON: None. FINDINGS: Glenohumeral and acromioclavicular joints congruent. The humeral head at the articular surface appear s irregular and blunted suggesting an impaction deformity. The humeral head is subtly situated legal receptionist ior to the glenoid suggesting posterior dislocation. Acromioclavicular joint congruent. No advanced d egenerative change. No radiographic soft tissue abnormality. IMPRESSION: 1. Findings highly concerning for current or recent posterior glenohumeral joint dislocation. Axilla ry or transscapular Y view recommended for better assessment of suspected dislocation. 2. Morphology of the humeral head may suggest impaction fracture at the articular surface. ACT 112: Negative or not required by law. Electronically signed by: Chaitanya Nelson M.D. 05/31/2019 7:27 PM
[2019-05-31 19:34] LABS: Adenovirus PCR Not Detected (NotDetected); Coronavirus 229E PCR Not Detected (NotDetected); Coronavirus HKU1 PCR Not Detected (NotDetected); Coronavirus NL63 PCR Not Detected (NotDetected); Coronavirus OC43PCR Not Detected (NotDetected); Human Metapneumovirus PCR Not Detected (NotDetected); Influenza A PCR Not Detected (NotDetected); Influenza B PCR Not Detected (NotDetected); Parainfluenza Virus 1 PCR Not Detected (NotDetected); Parainfluenza Virus 2 PCR Not Detected (NotDetected); Parainfluenza Virus 3 PCR Not Detected (NotDetected); Parainfluenza Virus 4 PCR Not Detected (NotDetected); Respiratory Syncytial VirusPCR Not Detected (NotDetected); Rhinovirus/Enterovirus PCR Not Detected (NotDetected)
[2019-05-31 19:35] LABS: Bordetella parapertussis PCR Not Detected (NotDetected); Bordetella pertussis PCR Not Detected (NotDetected); Chlamydia pneumoniae PCR Not Detected (NotDetected); Mycoplasma pneumoniae PCR Not Detected (NotDetected)
[2019-05-31] MEDS ORDERED: HYDROmorphone INJ 1 MG/ML SYRINGE ONE (19:38)
[2019-05-31 19:45] LABS: Sperm Urine Present (None Prsent)
--- NOTE | 2019-05-31 20:03 | XRay Report ---
XR shoulder LT min 2V routine CLINICAL HISTORY: 33 years-old Male presenting with post reduction with axillary or Y view. TECHNIQUE: Frontal and transscapular Y views of the left shoulder were obtained. COMPARISON: Plain radiographs from earlier today. FINDINGS: The humeral head is now congruent with the bony glenoid fossa. The humeral head at the articular surf brennan demonstrates an impaction deformity from prior posterior dislocation. No additional fracture iden tified. Acromioclavicular joint congruent. No radiographic soft tissue abnormality. IMPRESSION: 1. No residual subluxation or dislocation. 2. Impaction fracture of the articular surface of the humeral head. ACT 112: Negative or not required by law. Electronically signed by: Chaitanya Nelson M.D. 05/31/2019 8:02 PM
--- NOTE | 2019-05-31 20:53 | History & Physical Report ---
Date of Service May 31, 2019 Assessment & Plan (1) Seizure: Seizure activity- Witnessed by father at home Patient reports that his last Xanax use was 5 days ago, but that he had tapered dosing. History of seizures 5 years ago while in [place], with reported negative work-up to unknown extent. Urine drug screen with polysubstance abuse: Ecstasy (on Wellbutrin), cocaine, benzodiazepines and marijuana. Seizure activity most likely secondary to drug withdrawal, but will undergo work-up. Order EEG. To minimize healthcare exposures, will consult neurology if recurrent seizure activity. If patient has additional seizure activity this evening, will start Keppra IV Present on Admission?: Yes (2) Closed posterior dislocation of left shoulder: Reduced while in the ED. Present on Admission?: Yes (3) Polysubstance abuse: Monitor for withdrawal. Present on Admission?: Yes (4) Chest pain: Chest pain with myalgias and generalized fatigue- Patient lives in [place], and has recently traveled to [place]. Presently during the pandemic in the [place], patient will be considered COVID risk. His influenza and bio fire testing are completely negative. We will continue patient in negative pressure room, and order COVID testing. Present on Admission?: Yes (5) Myalgia: See above Present on Admission?: Yes (6) Fracture of head of left humerus: Associated with shoulder dislocation, can follow-up with orthopedics in the outpatient setting, unless symptoms progress. Present on Admission?: Yes History of Present Illness Chief Complaint: The patient presents to the emergency department via ambulance after having a witnessed seizure at home by his father. Primary Care Provider: NO PCP The patient is a 33-year-old male with a past medical history including benzodiazepine and Adderall abuse, with history of seizure 5 years ago in [place], who reports he was talking to his father, and last remembers was leaning forward, and then was told by his father later on that he had fallen forward onto his left shoulder and began to have a seizure. At the time of my ex amination, the patient is able to relate his history before and after the seizure, but does not remember the seizure events themselves. He was in [place] 5 days ago, where he lives, and had been driving 10 hours/day back to [place] to visit family. The patient has a history of polysubstance abuse, and reports that he had tapered himself off of Xanax and his last dosing was 5 days ago. In emergency department, work-up included a CT scan of the head that was negative for bleed, and chest CTA which showed no evidence of pulmonary embolus, there was subtle compression deformities of the superior endplates of T6-T10 with minimal compression fractures not excluded. There was no other evidence of acute intrathoracic pathology. His left shoulder x-ray did show a recent posterior gl enohumeral joint dislocation, that was reduced while in the ED, with suggestion of a impaction fracture at the articular surface of the humeral head. Laboratory evaluation significant for WBC 15.40, d-dimer 61250, creatinine 1.50, glucose 155 and LDH 342. Urine drug screen was positive for: Ecstasy, benzodiazepines, cocaine and marijuana. The patient's initial report by EMS to the ED, was that the patient underwent a respiratory arrest, as the patient's family felt that he had stopped breathing during the seizure activity, and began chest compressions. Upon questioning of the patient, as to how he had been feeling over the past several days, he reports that he has been having some chest discomfort across his sternum, and some generalized muscle aches and joint aches. He was also noted to be febrile to temperature 99.3 upon arrival to the ED. He was initially placed under COVID precautions, which were briefly relaxed by the ED, but reinstituted by me when I reviewed his history over the past several days. Allergies Allergy/AdvReac Type Severity Reaction Status Date / Time No Known Allergies Allergy Unverified 05/31/19 18:36 Home Medications Home Medications Medication Instructions Recorded Confirmed Type bupropion HCl [Wellbutrin XL] 300 mg PO QAM 05/31/19 05/31/19 History Past Med/Surg History Medical History (Updated 06/01/19 @ 02:41 by Lucio Collazo MD) Polysubstance abuse (Acute) Social History (Updated 05/31/19 @ 18:31 by Jun Lamar MD) Preferred Language: Tongan Communication Ability: Effective Beliefs That Will Affect Care: None Current Living Situation: Family Other Information That Helps Us Care for You: No Feels Safe at Home: Yes Safety Concerns: Feels Safe At This Time Smoking Status: Former smoker Hx Alcohol Use: Yes Hx Substance Use: Yes substance use type: marijuana, amphetamines, sedatives and prescription drug Last Used Substance: Just Prior to Arrival Review of Systems Review of Systems: The patient denies palpitations, cough, lower extremity swelling, sore throat, fevers, chills, sweats, weight change, fatigue, nausea, vomiting, diarrhea , constipation, abdominal pain, pelvic pain, blood in urine or stool, dysuria, urinary frequency or urgency, lightheadedness, dizziness, headache, rash, abnormal bruising or bleeding, imbalance, focal weakness, numbness or tingling in arms or legs, back or neck pain, or night sweats. The review of systems is otherwise negative other than for that already noted above, and at least 10 systems have been reviewed. Physical Exam Physical Exam: The patient is awake, alert and oriented 3, normocephalic and atraumatic, lying in bed and in no acute distress. HEENT--PERRL, EOMI, mucous membranes and oropharynx dry. Neck--supple. No JVD. No bruits. Thyroid normal, trachea midline, no adenopathy. Heart--normal S1 and S2. No murmurs, rubs or gallops. Lungs--clear bilaterally, no respiratory distress, no accessory muscle use. Abdomen--normal bowel sounds and soft. Nontender. Nondistended, no hernias or masses, no organomegaly. Extremities--no cyanosis or clubbing. No edema. Dermatologic--normal skin turgor, normal color, no abnormal lymph nodes, no rash. Neurologic--cranial nerves II through XII grossly intact. Rheumatologic--normal range of motion. Psychiatric--normal affect. Results & Data Results & Data ([facility]) Vital Signs (Past 12 Hours) Vital Signs Temp Pulse Resp BP Pulse Ox 05/31/19 19:20 87 16 157/95 H 100 05/31/19 19:10 94 H 13 169/85 H 100 05/31/19 19:00 90 13 147/91 H 100 05/31/19 18:56 90 14 147/91 H 100 05/31/19 18:30 95 H 15 100 05/31/19 18:15 97 H 21 99 05/31/19 18:10 98 H 19 148/80 H 98 05/31/19 18:00 96 H 17 150/95 H 98 05/31/19 17:51 99.3 F 05/31/19 17:44 110 H 15 157/96 H 99 05/31/19 17:43 101 H 18 157/96 H 99 Laboratory Results Laboratory Results WBC 15.40 K/uL (4.8-10.8) H 05/31/19 17:45 RBC 5.16 M/uL (4.7-6.1) 05/31/19 17:45 Hgb 14.6 g/dL (14.0-18.0) 05/31/19 17:45 Hct 42.9 % (42-52) 05/31/19 17:45 MCV 83.1 fL (80-100) 05/31/19 17:45 MCH 28.3 pg (25-34) 05/31/19 17:45 MCHC 34.0 g/dL (32-36) 05/31/19 17:45 RDW Std Deviation 44.6 fL (36.4-46.3) 05/31/19 17:45 RDW Coeff of Stiven 14.8 % (11.5-14.5) H 05/31/19 17:45 Plt Count 377 K/uL (130-400) 05/31/19 17:45 MPV 9.8 fL (7.4-10.4) 05/31/19 17:45 Immature Gran % (Auto) 1.4 % 05/31/19 17:45 Neut % (Auto) 87.9 % 05/31/19 17:45 Lymph % (Auto) 6.7 % 05/31/19 17:45 Bracken % (Auto) 3.5 % 05/31/19 17:45 Eos % (Auto) 0.1 % 05/31/19 17:45 Baso % (Auto) 0.4 % 05/31/19 17:45 Immature Gran # (Auto) 0.21 K/uL (0.00-0.02) H 05/31/19 17:45 Neut # (Auto) 13.55 K/uL (1.4-6.5) H 05/31/19 17:45 Lymph # (Auto) 1.03 K/uL (1.2-3.4) L 05/31/19 17:45 Bracken # (Auto) 0.54 K/uL (0.11-0.59) 05/31/19 17:45 Eos # (Auto) 0.01 K/uL (0-0.5) 05/31/19 17:45 Baso # (Auto) 0.06 K/uL (0-0.2) 05/31/19 17:45 D-Dimer 62105 ug/L FEU (0-500) H* 05/31/19 17:45 Sodium 138 mmol/L (136-145) 05/31/19 17:45 Potassium 3.8 mmol/L (3.5-5.1) 05/31/19 17:45 Chloride 104 mmol/L (98-107) 05/31/19 17:45 Carbon Dioxide 19 mmol/L (21-32) L 05/31/19 17:45 Anion Gap 15.0 (3-11) H 05/31/19 17:45 BUN 12 mg/dl (7-18) 05/31/19 17:45 Creatinine 1.50 mg/dl (0.6-1.4) H 05/31/19 17:45 Est Cr Clr Drug Dosing Not Reportable 05/31/19 16:45 Est GFR ( Amer) 69.4 05/31/19 17:45 Est GFR (Non-Af Amer) 59.9 05/31/19 17:45 BUN/Creatinine Ratio 7.9 (10-20) L 05/31/19 17:45 Glucose 155 mg/dl (70-99) H 05/31/19 17:45 POC Glucose 158 mg/dl (70-99) H 05/31/19 17:54 Lactate 1.0 mmol/L (0.4-2.0) 05/31/19 20:55 Calcium 9.7 mg/dl (8.5-10.1) 05/31/19 17:45 Magnesium 2.6 mg/dl (1.8-2.4) H 05/31/19 17:45 Total Bilirubin 0.5 mg/dl (0.2-1) 05/31/19 17:45 AST 26 U/L (15-37) 05/31/19 17:45 ALT 34 U/L (12-78) 05/31/19 17:45 Alkaline Phosphatase 156 U/L (45-117) H 05/31/19 17:45 Lactate Dehydrogenase 342 U/L (87-241) H 05/31/19 17:45 Total Creatine Kinase 243 U/L (39-308) 05/31/19 17:45 Troponin I < 0.015 ng/ml (0-0.045) 05/31/19 17:45 Total Protein 8.2 gm/dl (6.4-8.2) 05/31/19 17:45 Albumin 4.2 gm/dl (3.4-5.0) 05/31/19 17:45 Globulin 4.0 gm/dl (2.5-4.0) 05/31/19 17:45 Albumin/Globulin Ratio 1.1 (0.9-2) 05/31/19 17:45 Procalcitonin < 0.05 ng/ml (0-0.5) 05/31/19 17:45 Urine Color Yellow 05/31/19 18:25 Urine Appearance Clear (Clear) 05/31/19 18:25 Urine pH 5.5 (4.5-7.5) 05/31/19 18:25 Ur Specific [place] 1.018 (1.000-1.030) 05/31/19 18:25 Urine Protein Trace (Negative) H 05/31/19 18:25 Urine Glucose (UA) Negative (Negative) 05/31/19 18:25 Urine Ketones 1+ (Negative) H 05/31/19 18:25 Urine Blood Trace (Negative) H 05/31/19 18:25 Urine Nitrite Negative (Negative) 05/31/19 18:25 Urine Bilirubin Negative (Negative) 05/31/19 18:25 Urine Urobilinogen Negative (Negative) 05/31/19 18:25 Ur Leukocyte Esterase Negative (Negative) 05/31/19 18:25 Urine WBC (Auto) 1-5 /hpf (0-5) 05/31/19 18:25 Urine RBC (Auto) 0-4 /hpf (0-4) 05/31/19 18:25 U Hyaline Cast (Auto) 0 /lpf (0-5) 05/31/19 18:25 U Epithel Cells (Auto) 0-5 /lpf (0-5) 05/31/19 18:25 Urine Bacteria (Auto) Negative (Negative) 05/31/19 18:25 Urine Sperm Present (None Prsent) A 05/31/19 18:25 Salicylates < 1.7 mg/dl (2.8-20) L 05/31/19 17:45 Urine Opiates Screen Neg (Neg) 05/31/19 18:25 Ur Methadone, Qual Neg (Neg) 05/31/19 18:25 Acetaminophen < 2 ug/ml (10-30) L 05/31/19 17:45 Urine Barbiturates Neg (Neg) 05/31/19 18:25 Ur Phencyclidine (PCP) Neg (Neg) 05/31/19 18:25 U Amphetamin/Meth Scrn Neg (Neg) 05/31/19 18:25 MDMA (Ecstasy) Screen Pos (Neg) H 05/31/19 18:25 U Benzodiazepines Scrn Pos (Neg) H 05/31/19 18:25 Ur Cocaine Metabolite Pos (Neg) H 05/31/19 18:25 U Marijuana (THC) Screen Pos (Neg) H 05/31/19 18:25 Ethyl Alcohol mg/dL < 3.0 mg/dl (0-3) 05/31/19 18:15 Adenovirus (PCR) Not Detected (NotDetected) 05/31/19 17:55 B. pertussis DNA (PCR) Not Detected (NotDetected) 05/31/19 17:55 B.parapertussis DNA PCR Not Detected (NotDetected) 05/31/19 17:55 C. pneumoniae DNA (PCR) Not Detected (NotDetected) 05/31/19 17:55 Coronavirus OC43 (PCR) Not Detected (NotDetected) 05/31/19 17:55 Coronavirus HKU1 (PCR) Not Detected (NotDetected) 05/31/19 17:55 Coronavirus 229E (PCR) Not Detected (NotDetected) 05/31/19 17:55 Coronavirus NL63 (PCR) Not Detected (NotDetected) 05/31/19 17:55 Human Metapneumovir PCR Not Detected (NotDetected) 05/31/19 17:55 Influenza Type A (PCR) Not Detected (NotDetected) 05/31/19 17:55 Influenza Type B (PCR) Not Detected (NotDetected) 05/31/19 17:55 M. pneumoniae (PCR) Not Detected (NotDetected) 05/31/19 17:55 Parainfluenza 1 (PCR) Not Detected (NotDetected) 05/31/19 17:55 Parainfluenza 2 (PCR) Not Detected (NotDetected) 05/31/19 17:55 Parainfluenza 3 (PCR) Not Detected (NotDetected) 05/31/19 17:55 Parainfluenza 4 (PCR) Not Detected (NotDetected) 05/31/19 17:55 RSV (PCR) Not Detected (NotDetected) 05/31/19 17:55 Entero/Rhino (PCR) Not Detected (NotDetected) 05/31/19 17:55 Diagnostic Findings [place], [place] [phone] CT Scan Report Patient: REMINGTON RENAE Date: 05/31/19 MR#: [id number]: Brenna FAULKNER Acct ID:[id number]: [facility] 1985[facility] [place] [address] Age: 33Location: ED Sex: M Room/Bed: Att Phy:Diagnosis: post arrest/ excited delirium Nelia Phy: PCP,NOService Date: 05/31/19 Fam Phy:Interpreting Phy: Chaitanya Nelson MD Admit Phy: Ordering Phy: Jun Lamar MD cc: ~ CT head/brain wo con CLINICAL HISTORY: 33 years-old Male presenting with ams, eval for bleed. TECHNIQUE: Multidetector CT imaging of the head was performed without the use of intravenous contrast. IV contrast: None. One or more dose lowering techniques were used consistent with the principles of ALARA (as low as reasonably achievable), including automatic exposure control, mA or kV adjustment to individual patient size, and/or use of iterative reconstruction. COMPARISON: None. CT DOSE (mGy.cm): The estimated cumulative dose is 729.78 mGycm. FINDINGS: [employer] topogram: Unremarkable. Ventricles and sulci normal in size apart from anoop cisterna magna. No hemorrhage. Brain parenchyma normal in appearance with preserved ramey-white differentiation. No acute territorial infarct. No mass effect or midline shift. No extra-axial fluid collection. Limited aerated secretions in the right maxillary sinus. Calvarium intact. IMPRESSION: 1. No acute intracranial abnormality. 2. Limited aerated secretions in the right maxillary sinus. Given the limited extent, acute sinusitis is considered unlikely. ACT 112: Negative or not required by law. Electronically signed by: Chaitanya Nelson M.D. 05/31/2019 6:57 PM [facility] [place] [phone] CT Scan Report Patient: REMINGTON RENAEdmit Date: 05/31/19 MR#: [id number]: Brenna FAULKNER Acct ID:[id number]: Date: [address] Zip: [place] [address] Age: 33Location: ED Sex: M Room/Bed: Att Phy:Diagnosis: post arrest/ excited delirium Nelia Phy: PCP,NOService Date: 05/31/19 Fam Phy:Interpreting Phy: Chaitanya Nelson MD Admit Phy: Ordering Phy: Jun Lamar MD cc: ~ ADDENDUM After further discussion with Dr. Jun Lamar and correlation with radiographs of the left shoulder, the left glenohumeral joint is posteriorly subluxed with an impaction deformity of the anterior articular surface of the humeral head (series 2 image 108). Electronically signed by: Chaitanya Nelson M.D. 05/31/2019 7:[address] angio chest PE protocol CLINICAL HISTORY: 33 years-old Male presenting with atypical chest pain, respiratory arrest, CPR at home, seizure clinical concern for pulmonary embolus. TECHNIQUE: Multidetector CT angiography of the chest was performed after administration of intravenous contrast. 3-D volumetric and/or maximum intensity projection (MIP) images were subsequently reconstructed for review. IV contrast: 119 mL of Optiray 320. One or more dose lowering techniques were used consistent with the principles of ALARA (as low as reasonably achievable), including automatic exposure control, mA or kV adjustment to individual patient size, and/or use of iterative reconstruction. COMPARISON: None. CT DOSE (mGy.cm): The estimated cumulative dose is 731.68 mGycm. FINDINGS: [employer] Development Manager topogram: Unremarkable. Pulmonary vasculature: The study is adequate for assessment of the pulmonary vascular tree. No filling defect within the pulmonary arteries to suggest embolus. Main pulmonary artery is not enlarged. No flattening of the interventricular septum. No intracardiac filling defect. No reflux of contrast into the hepatic veins. Remaining chest: Soft tissues: Normal thyroid and thoracic inlet. No axillary, supraclavicular, mediastinal, or hilar lymphadenopathy. Normal aorta. Normal heart size. No pericardial or pleural effusion. Upper abdomen normal. Lungs and airways: No pneumothorax. Central airways patent. Pulmonary arteries are not significantly enlarged relative to adjacent bronchi. No interlobular septal thickening. No focal infiltrate or nodule within the visualized portion of the lungs allowing for exclusion of the inferior most lung bases. Musculoskeletal: Slight compression deformities of the superior endplates of several mid to lower thoracic vertebral bodies, namely T6-T10. IMPRESSION: 1. No evidence of pulmonary embolus. 2. Subtle compression deformities of the superior endplates of T6-T10. Minimal compression fractures are not excluded. Correlate with spinal tenderness. 3. No other evidence of acute intrathoracic pathology. ACT 112: Negative or not required by law. Electronically signed by: Chaitanya Nelson M.D. 05/31/2019 7:11 PM Dictated: 05/31/191902 Transcribed: 05/31/191902 [place], [place] [phone] X[facility]: [facility] MR#: [id number]: Brenna FAULKNER Acct ID:[id number]: Date: 1985City Zip: [place] [address] Age: 33Location: ED Sex: M Room/Bed: Att Phy:Diagnosis: post arrest/ excited delirium Nelia Phy: PCP,NOService Date: 05/31/19 Fam Phy:Interpreting Phy: Chaitanya Nelson MD Admit Phy: Ordering Phy: Jun Lamar MD cc: ~ XR shoulder LT min 2V routine CLINICAL HISTORY: 33 years-old Male presenting with fall eval for fx. TECHNIQUE: Internal rotation, external rotation, and Grashey views of the left shoulder were obtained. COMPARISON: None. FINDINGS: Glenohumeral and acromioclavicular joints congruent. The humeral head at the articular surface appears irregular and blunted suggesting an impaction deformity. The humeral head is subtly situated posterior to the glenoid suggesting posterior dislocation. Acromioclavicular joint congruent. No advanced degenerative change. No radiographic soft tissue abnormality. IMPRESSION: 1. Findings highly concerning for current or recent posterior glenohumeral joint dislocation. Axillary or transscapular Y view recommended for better assessment of suspected dislocation. 2. Morphology of the humeral head may suggest impaction fracture at the articular surface. ACT 112: Negative or not required by law. Electronically signed by: Chaitanya Nelson M.D. 05/31/2019 7:27 PM [place], [place] [phone] XRay Report Patient: REMINGTON RENAEdmloyda Date: 05/31/19 MR#: [id number]: Brenna FAULKNER Acct ID:[id number]: Date: 1985[facility] Zip: [place] [address] Age: 33Location: ED Sex: M Room/Bed: Att Phy:Diagnosis: post arrest/ excited delirium Nelia Phy: PCP,NOService Date: 05/31/19 Fam Phy:Interpreting Phy: Chaitanya Nelson MD Admit Phy: Ordering Phy: Jun Lamar MD cc: ~ XR shoulder LT min 2V routine CLINICAL HISTORY: 33 years-old Male presenting with post reduction with axillary or Y view. TECHNIQUE: Frontal and transscapular Y views of the left shoulder were obtained. COMPARISON: Plain radiographs from earlier today. FINDINGS: The humeral head is now congruent with the bony glenoid fossa. The humeral head at the articular surface demonstrates an impaction deformity from prior posterior dislocation. No additional fracture identified. Acromioclavicular joint congruent. No radiographic soft tissue abnormality. IMPRESSION: 1. No residual subluxation or dislocation. 2. Impaction fracture of the articular surface of the humeral head. ACT 112: Negative or not required by law. Electronically signed by: Chaitanya Nelson M.D. 05/31/2019 8:02 PM Dictated: 05/31/191958 Transcribed: 05/31/191958 Dictated: 05/31/191924 Transcribed: 05/31/191924 Dictated: 05/31/191851 Transcribed: 05/31/191851 Code Status & VTE Plan Code Status Full code VTE Prophylaxis Plan VTE Prophylaxis will be ordered: Yes PG Care Time/CCT Total # of Minutes Spent Total Time Spent with Patient: Total time spent is greater than 50% in coordination of care (as documented) at patient's floor/unit and/or counseling patient: Coding Level of Care Code 49949 Initial Inpt Care Lvl 3 Diagnoses Seizure R56.9 Closed posterior dislocation of left shoulder S43.025A Encounter type: initial encounter Polysubstance abuse F19.10 Chest pain R07.9 Chest pain type: unspecified Myalgia M79.10 Fracture of head of left humerus S42.292A Encounter type: initial encounter Fracture type: closed (1) Closed posterior dislocation of left shoulder Encounter type: initial encounter Qualified Code(s): S43.025A - Posterior dislocation of left humerus, initial encounter (2) Chest pain Chest pain type: unspecified Qualified Code(s): R07.9 - Chest pain, unspecified (3) Fracture of head of left humerus Encounter type: initial encounter Fracture type: closed Qualified Code(s): S42.292A - Other displaced fracture of upper end of left humerus, initial encounter for closed fracture
[2019-05-31] MEDS ORDERED: ONDANSETRON INJ 2 MG/ML 2 ML VIAL IV PRN (22:48)
[2019-05-31] MEDS ORDERED: ACETAMINOPHEN 325 MG TAB PO PRN (22:48)
[2019-06-01] MEDS ORDERED: KETOROLAC TROMETHAMINE 15 MG/ML VIAL IV ONE (01:36)
[2019-06-01 08:40] LABS: Basophils # (auto) 0.05 K/uL (0-0.2); Basophils % (auto) 0.4 %; Eosinophils # (auto) 0.02 K/uL (0-0.5); Eosinophils % (auto) 0.1 %; Hematocrit (blood only) 42.9 % (42-52); Hemoglobin 14.5 g/dL (14.0-18.0); Immature Granulocytes # (auto) 0.05 K/uL (0.00-0.02); Immature Granulocytes % (auto) 0.4 %; Lymphocytes # (auto) 1.42 K/uL (1.2-3.4); Lymphocytes % (auto) 10.5 %; Mean Corpuscular Hemoglobin 27.7 pg (25-34); Mean Corpuscular Hgb Conc 33.8 g/dL (32-36); Mean Corpuscular Volume 81.9 fL (80-100); Mean Platelet Volume 9.7 fL (7.4-10.4); Monocytes # (auto) 0.98 K/uL (0.11-0.59); Monocytes % (auto) 7.2 %; Neutrophils # (auto) 11.04 K/uL (1.4-6.5); Neutrophils % (auto) 81.4 %; Platelet Count 310 K/uL (130-400); RDW Coefficient of Variation 15.1 % (11.5-14.5); Red Blood Count 5.24 M/uL (4.7-6.1); White Blood Count 13.56 K/uL (4.8-10.8)
[2019-06-01] MEDS: BuPROPion XL 300 MG TABCR PO SCH (08:54)
[2019-06-01 08:59] LABS: Potassium 3.8 mmol/L (3.5-5.1)
[2019-06-01 09:00] LABS: Albumin Level 3.9 gm/dl (3.4-5.0); BUN Creatinine Ratio 13.3 (10-20); Bilirubin,Total 0.7 mg/dl (0.2-1); Calcium 8.9 mg/dl (8.5-10.1); Creatinine Clr Calc Pharmacy 96.5 ml/min; Est GFR (African American) 117.6; Est GFR (Non-African American) 101.4; Globulin 3.7 gm/dl (2.5-4.0); Magnesium 2.2 mg/dl (1.8-2.4); Total Protein 7.6 gm/dl (6.4-8.2)
--- NOTE | 2019-06-01 12:11 | Electrocardiogram Report ---
Test Reason : Blood Pressure : / mmHG Vent. Rate : 100 BPM Atrial Rate : 100 BPM P-R Int : 172 ms QRS Dur : 104 ms QT Int : 358 ms P-R-T Axes : 076 088 058 degrees QTc Int : 461 ms Normal sinus rhythm Normal ECG No previous ECGs available Confirmed by Kike Barrios ([id number]) on 06/01/2019 12:10:30 PM Referred By: REFERRED SELF Confirmed By:Kike Barrios
[2019-06-01] MEDS ORDERED: IBUPROFEN 600 MG TAB PO PRN (16:05)
--- NOTE | 2019-06-01 16:21 | Family Medicine Progress Note ---
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 No present sz activity. Last dose of alprazolam was > 1 wk ago and was tapered per patient. Previous episode of seizure was in [place] > 1 year ago. Patient reports no substance use at that time and no precipitating factors known, as well as no remembered work up per pt. Fracture of head of left humerus - encouraged sling use to avoid pain as patient FROM bilateral while in bed, continue APAP/NSAID for pain control Polysubstance abuse - CM offered rehab services, would encourage. Per documentation, myalgias and travel history but no infectious symptoms. Currently negative pressure with COVID19 testing pending. Would encourage quarantine/isolation procedure following discharge while testing pending. Present on Admission?: Yes (2) Fracture of head of left humerus: Present on Admission?: Yes (3) Closed posterior dislocation of left shoulder: Present on Admission?: Yes (4) Polysubstance abuse: Present on Admission?: Yes Admission and Anticipated Discharge Date Admission Date: May 31, 2019 Subjective Pt seen and examined at bedside. Pain minimal per patient presentation on APAP on multiple evaluations, patient out of sling 2/2 discomfort. Review of Systems Constitutional: no fever, no chills and no fatigue Respiratory: no cough, no dyspnea and no wheezing Cardiovascular: no chest pain, no palpitations and no syncope Gastrointestinal: no abdominal pain, no nausea, no vomiting, no constipation and no diarrhea/loose stools Integumentary: no rash and no lesions Neurologic: no tingling, no numbness, no seizure-like activity, no headache(s) and no behavioral changes Psychiatric: no behavioral changes Physical Exam Constitutional: WD/WN, vitals as above no acute distress Eyes: PERRL, conjunctivae normal, anicteric sclerae Respiratory: normal respiratory effort, lungs clear to auscultation no respiratory distress Cardiovascular: RRR, no murmur, no edema Heart Sounds: normal S1 and normal S2 Gastrointestinal (Abdomen): normal bowel sounds, soft, nontender, no hepatosplenomegaly Musculoskeletal: Extremities: extremities normal to inspection and strength 5/5 throughout (distally); full ROM of extremities Skin: no rashes, warm and dry Neurologic: normal touch/pain/proprioception and CN's II-XI intact bilaterally Results & Data ([facility]) Vital Signs (Past 12 Hours) Vital Signs Temp Pulse Resp BP Pulse Ox 06/01/19 15:30 37.2 C 73 20 126/66 100 06/01/19 07:39 37.1 C 64 16 131/70 100 (1) Fracture of head of left humerus Encounter type: initial encounter Fracture type: closed Qualified Code(s): S42.292A - Other displaced fracture of upper end of left humerus, initial encounter for closed fracture (2) Closed posterior dislocation of left shoulder Encounter type: initial encounter Qualified Code(s): S43.025A - Posterior d islocation of left humerus, initial encounter
[2019-06-02 06:46] LABS: Basophils # (auto) 0.02 K/uL (0-0.2); Basophils % (auto) 0.2 %; Eosinophils # (auto) 0.07 K/uL (0-0.5); Eosinophils % (auto) 0.6 %; Hematocrit (blood only) 41.4 % (42-52); Hemoglobin 13.6 g/dL (14.0-18.0); Immature Granulocytes # (auto) 0.02 K/uL (0.00-0.02); Immature Granulocytes % (auto) 0.2 %; Lymphocytes # (auto) 1.15 K/uL (1.2-3.4); Lymphocytes % (auto) 10.4 %; Mean Corpuscular Hemoglobin 27.1 pg (25-34); Mean Corpuscular Hgb Conc 32.9 g/dL (32-36); Mean Corpuscular Volume 82.6 fL (80-100); Mean Platelet Volume 9.6 fL (7.4-10.4); Monocytes # (auto) 0.89 K/uL (0.11-0.59); Monocytes % (auto) 8.1 %; Neutrophils # (auto) 8.86 K/uL (1.4-6.5); Neutrophils % (auto) 80.5 %; Platelet Count 304 K/uL (130-400); RDW Coefficient of Variation 15.2 % (11.5-14.5); RDW Standard Deviation 45.6 fL (36.4-46.3); Red Blood Count 5.01 M/uL (4.7-6.1); White Blood Count 11.01 K/uL (4.8-10.8)
[2019-06-02 07:14] LABS: BUN Creatinine Ratio 16.9 (10-20); Calcium 9.1 mg/dl (8.5-10.1); Creatinine Clr Calc Pharmacy 95.5 ml/min; Est GFR (African American) 116.1; Est GFR (Non-African American) 100.2; Potassium 3.9 mmol/L (3.5-5.1)
[2019-06-02] MEDS: BuPROPion XL 300 MG TABCR PO SCH (08:26)
--- NOTE | 2019-06-02 12:37 | Neurology Consultation ---
Date of Consultation June 02, 2019 Assessment & Plan (1) Seizure: Joselyn Gamble is a 33 yo man w/ PMH of polysubstance abuse and depression/anxiety who p/t [facility] after reported seizure like activity. # Seizure: most likely provoked in the setting of polysubstance abuse while actively weaning off of benzos per pt report. Cannot completely rule out convulsive syncope as he felt dizzy/lightheaded prior to event and noted presyncopal symptoms. - please obtain an EEG while admitted - recommend obtaining an MRI brain in 1-2 months as an outpatient (after cleared for covid, not needed urgently given seizure was likely provoked) - recommend social work consult given polysubstance abuse and referral for drug rehab as he will continue to be at risk for seizures in the setting of active drug abuse. Did discuss with him today that his polysubstance abuse puts him at risk for breakthrough seizures in the future if he does not stop. - despite having 2 suspected seizures, both appear to be provoked in the setting of drug abuse, so no need to start an AED at this time unless EEG shows abnormalities - recommended that he register for the portal so he can have a telehealth appointment after his MRI in 1-2 months to discuss if any changes to the plan and to check in # Depression/anxiety: - given suspected provoked seizure, would recommend changing to a different SSRI or SNRI. Could consider buspar as a temporary adjunct to help with his anxiety as he is being titrated on alternative anti-anxiety agent but will defer to primary team. Thank you for this interesting consult. Plan of care discussed with primary team. Please call or text with questions. (2) Polysubstance abuse: (3) Closed posterior dislocation of left shoulder: History of Present Illness Attending Physician: Vasquez Zuniga MD History of Present Illness Joselyn Gamble is a 33 yo man w/ PMH of polysubstance abuse who p/t [facility] after reported seizure like activity. In the ED, he was afebrile, BP 157/96, HR 101, RR 18, satting 99% on room air. Labs notable for WBC 15.4, Hb 14.6, Plts 377, Cr 0.5, glucose 155, Na/K/Cl [place] [address], calcium WNL, Mg elevated at 2.6, AlkPhos elevated at 156, AG 15, lactate elevated to 5.8, troponin negative, biofire respiratory screen negative, UDS+ for ecstasy/benzos/cocaine/marijuana, UA trace protein and ketones but no infection. CTA chest showed no PE. Xray of left shoulder showed recent posterior glenohumeral joint dislocation. Independent review of CTH shows no hemorrhage or hypodensity, no clear mass lesion or midline shift. EKG showed NSR. His shoulder was reduced and he was admitted for further workup. Of note, he reports that he had a seizure about 5 years ago while in [place]. Reportedly had an unremarkable workup at that time. He also had a syncopal event 2 years ago where he received narcan and woke back up. He gave further details that he was woken up by his father from a nap and went to stand up and then bent over to seed cone picker a cat when he felt lightheaded like he was going to pass out. He reports that this is when he fell and hit his shoulder and his father noted that he had generalized shaking movements. He denies any tongue biting or loss of bowel or bladder. He admitted to stopping Xanax the day prior to event and had noticed low back pain and felt a little bit "off", but otherwise denies any other medication changes. Denies that he takes any medicine other than Xanax, marijuana edibles or his home Wellbutrin. His current medications include: none. He has previously tried: n/a Most recent EEG: pending Prior MRI brain: none Prior EMU stay: none Seizure risk factors: Endorses: current polysubstance abuse (marijuana, cocaine, benzos, adderall) Denies: , complications, NICU stay, IEP or intellectual disability as a child, history of meningitis or encephalitis, recurrent TBI with loss of consciousness, family history of epilepsy, history of febrile seizures, history of stroke or brain malformation, congenital epilepsy syndrome Seizure description: 1) Grand mal: Description: fall -> full body convulsions, +LoC, no tongue biting or loss of bowel/bladder, lasted 2-3 minutes Frequency: only one other event 5 years ago (possibly also provoked in the setting of polysubstance abuse) Any recent changes: sleep deprivation, travel, stress, weaning benzos Triggers: n/a Allergies Allergy/AdvReac Type Severity Reaction Status Date / Time No Known Allergies Allergy Unverified 05/31/19 18:36 Home Medications Home Medications Medication Instructions Recorded Confirmed Type bupropion HCl [Wellbutrin XL] 300 mg PO QAM 05/31/19 05/31/19 History Patient History Medical History Polysubstance abuse (Acute) Social History Preferred Language: Mongolian Communication Ability: Effective Beliefs That Will Affect Care: None Current Living Situation: Family Other Information That Helps Us Care for You: No Feels Safe at Home: Yes Safety Concerns: Feels Safe At This Time Smoking Status: Former smoker Hx Alcohol Use: Yes Hx Substance Use: Yes substance use type: marijuana, amphetamines, sedatives and prescription drug Last Used Substance: Just Prior to Arrival Review of Systems Review of Systems: 14 point review of systems completed and negative except as in HPI. Physical Exam Physical Exam: General Exam: GEN: NAD, sitting in bed. HEENT: No conjunctival injection, no rhinorrhea. CV: RRR, no peripheral edema PULM: Nonlabored respirations on room air. Neuro Exam: * please note, exam was limited as pt was on covid-19 precautions MS: Awake and Alert. Oriented to person, place, and date. Speech fluent and appropriate without dysarthria or paraphasic errors. Language intact including naming, comprehension, repetition. Cognition and memory grossly intact. Attention intact. No neglect. CN: Visual vences full. No extinction to double simultaneous stimuli. Unable to visualize fundi on fundoscopic exam. PERRLA OU. EOMI without nystagmus. Facial sensation intact to LT. Facial muscles full and symmetric. Hearing intact to conversation. Uvula midline with symmetric palatal elevation. Shoulder shrug normal. Tongue midline. MOTOR: Normal bulk and tone. No pronator drift. BUE strength 5/5 at deltoids, biceps, triceps, wrist flexors and extensors, and hand grasp bilaterally. BLE strength 5/5 at iliopsoas, hamstrings, quadriceps, tibialis anterior, and gastrocnemius bilaterally. REFLEXES: Flexor plantar responses bilaterally. No clonus. SENSORY: Intact to LT without extinction to double simultaneous stimuli. COORDINATION: No dysmetria or ataxia on [id number] bilaterally. Normal Nellie bilaterally. GAIT: Deferred given physical status Results & Data Vital Signs (Past 12 Hours) Vital Signs Temp Pulse Resp BP Pulse Ox 06/02/19 11:11 36.8 C 06/02/19 08:29 80 16 126/69 99 PG Care Time/CCT Total # of Minutes Spent Total Time Spent with Patient: Total time spent is greater than 50% in coordination of care (as documented) at patient's floor/unit and/or counseling patient: Coding Level of Care Code 24715 Inpt Consult Level 5 Diagnoses Seizure R56.9 Polysubstance abuse F19.10 Closed posterior dislocation of left shoulder S43.025A Encounter type: initial encounter (1) Closed posterior dislocation of left shoulder Encounter type: initial encounter Qualified Code(s): S43.025A - Posterior dislocation of left humerus, initial encounter
--- NOTE | 2019-06-02 15:39 | Electroencephalogram ---
EEG Procedure Note Date of Service June 02, 2019 Start / End Times Start Time: 12:15pm End Time: 12:35pm Referring Physician Vasquez Zuniga History 33 yo man w/ pmh of polysubstance abuse with seizure Home Medication List Home Medications Medication Instructions Recorded Confirmed Type bupropion HCl [Wellbutrin XL] 300 mg PO QAM 05/31/19 05/31/19 History Inpatient Medication List Acetaminophen (Tylenol) 650 mg PO Q4H PRN PRN Reason: pain/fever Stop: 06/30/19 22:47 Last Admin: 06/01/19 13:01 Dose: 650 mg Documented by: [id number] Bupropion HCl (Wellbutrin-Xl) 300 mg PO QAM [place] Stop: 07/01/19 08:59 Last Admin: 06/02/19 08:26 Dose: 300 mg Documented by: [id number] Admin: 06/01/19 08:54 Dose: 300 mg Documented by: [id number] Ibuprofen (Motrin) 600 mg PO Q8H PRN PRN Reason: pain Stop: 07/01/19 16:04 Last Admin: 06/01/19 16:42 Dose: 600 mg Documented by: [id number] Discontinued Medications Hydromorphone HCl (Dilaudid) Confirm Administered Dose 1 mg .ROUTE .STK-MED ONE Stop: 05/31/19 19:39 Last Admin: 05/31/19 19:45 Dose: 1 mg Documented by: [id number] Sodium Chloride (Nss 1000ml) 1,000 mls @ 999 mls/hr IV .Q1H1M ONE Stop: 05/31/19 19:23 Last Infusion: 05/31/19 19:46 Dose: 0 mls/hr Documented by: [id number] Admin: 05/31/19 18:52 Dose: 999 mls/hr Documented by: [id number] Ioversol (Optiray 320 125ml) 119 ml IV ONCE PRN PRN Reason: Interaction Checking Stop: 06/04/19 18:38 Last Admin: 05/31/19 18:40 Dose: 119 ml Documented by: [id number] Ketamine HCl (Ketalar Steri-Vial) Confirm Administered Dose 500 mg .ROUTE .STK- MED ONE Stop: 05/31/19 17:47 Last Admin: 05/31/19 17:58 Dose: Not Given Documented by: [id number] Ketorolac Tromethamine (Toradol) 15 mg IV NOW ONE Stop: 06/01/19 01:37 Last Admin: 06/01/19 02:20 Dose: 15 mg Documented by: [id number] Lorazepam (Ativan) Confirm Administered Dose 2 mg .ROUTE .STK-MED ONE Stop: 05/31/19 17:49 Last Increment: 05/31/19 17:52 Dose: 1 mg Documented by: [id number] Miscellaneous () Confirm Administered Dose 1 ea .ROUTE .STK-MED ONE Stop: 05/31/19 17:31 Last Admin: 05/31/19 17:58 Dose: Not Given Documented by: [id number] Morphine Sulfate (Morphine Sulfate) 4 mg IV NOW STA Stop: 05/31/19 18:51 Last Admin: 05/31/19 18:54 Dose: 4 mg Documented by: [id number] Ondansetron HCl (Zofran) 4 mg IV NOW STA Stop: 05/31/19 18:51 Last Admin: 05/31/19 18:54 Dose: 4 mg Documented by: [id number] Description This is a 21 electrode EEG with a single channel dedicated to limited EKG. The electrodes were placed in accordance with the International 10-20 system. History: 33 yo with polysubstance abuse and possible seizure Rx: ativan prn, ketamine once (1.5 days prior to EEG), wellbutrin Start/Stop: 12:15pm/12:35pm Attending reading: Elena Stewart EEG Description: EEG background: Background was predominantly alpha with occasional overriding beta. A well formed 8-9 Hz posterior dominant rhythm was observed. The EEG is continuous. There is variability and reactivity present. Activation and reactivity: Photic stimulation performed without any abnormali ties noted. No photic driving observed. Hyperventilation was not performed. Sleep: Patient was very briefly drowsy but did not enter higher levels of sleep. Epileptiform discharges: No epileptiform discharges were observed. Rhythmic and periodic patterns: None Seizures: None Impression: This was a normal awake and drowsy EEG. No seizures or epileptiform discharges were seen. Overriding beta can be a medication side effect from the wellbutrin. Clinical correlation required. [facility] EEG Procedure Codes Indication for Procedure (1) Seizure: (2) Polysubstance abuse: (3) Closed posterior dislocation of left shoulder: Neurology Neurology: 11705 EEG include record awake & drowsy
--- NOTE | 2019-06-02 17:03 | Discharge Summary ---
Date of Service June 02, 2019 Admission HPI Per Admitting Provider The patient is a 33-year-old male with a past medical history including benzodiazepine and Adderall abuse, with history of seizure 5 years ago in [place], who reports he was talking to his father, and last remembers was leaning forward, and then was told by his father later on that he had fallen forward onto his left shoulder and began to have a seizure. At the time of my examination, the patient is able to relate his history before and after the seizure, but does not remember the seizure events themselves. He was in [place] 5 days ago, where he lives, and had been driving 10 hours/day back to [place] to visit family. The patient has a history of polysubstance abuse, and reports that he had tapered himself off of Xanax and his last dosing was 5 days ago. In emergency department, work-up included a CT scan of the head that was negative for bleed, and chest CTA which showed no evidence of pulmonary embolus, there was subtle compression deformities of the superior endplates of T6-T10 with minimal compression fractures not excluded. There was no other evidence of acute intrathoracic pathology. His left shoulder x-ray did show a recent posterior glenohumeral joint dislocation, that was reduced while in the ED, with suggestion of a impaction fracture at the articular surface of the humeral head. Laboratory evaluation significant for WBC 15.40, d-dimer 44376, creatinine 1.50, glucose 155 and LDH 342. Urine drug screen was positive for: Ecstasy, benzodiazepines, cocaine and marijuana. The patient's initial report by EMS to the ED, was that the patient underwent a respiratory arrest, as the patient's family felt that he had stopped breathing during the seizure activity, and began chest compressions. Upon questioning of the patient, as to how he had been feeling over the past several days, he reports that he has been having some chest discomfort across his sternum, and some generalized muscle aches and joint aches. He was also noted to be febrile to temperature 99.3 upon arrival to the ED. He was initially placed under COVID precautions, which were briefly relaxed by the ED, but reinstituted by me when I reviewed his history over the past several days. Principal Diagnosis Seizure and right humeral fracture Discharge Exam Constitutional WD/WN, vitals as above Eyes EOM intact bilaterally; no conjunctival abnormality ENMT external ear and nose normal, oropharynx normal Neck trachea midline, no thyromegaly normal visual inspection Respiratory normal respiratory effort, lungs clear to auscultation no respiratory distress Cardiovascular RRR, no murmur, no edema Gastrointestinal (Abdomen) Inspection/Auscultation: abdomen normal to inspection; abdomen not distended Musculoskeletal no cyanosis or clubbing, extremities motor strength 5/5 Skin no rashes, warm and dry Neurologic moves all extremities and awake Psychiatric Orientation: alert, oriented to person and cooperative Discharge Data Allergies Allergy/AdvReac Type Severity Reaction Status Date / Time No Known Allergies Allergy Unverified 05/31/19 18:36 Consultations 05/31/19 19:58 ED Decision to Admit Stat 05/31/19 22:48 Consult Case Management - Discharge Planning Routine 06/02/19 11:33 Consult Neurology Routine Ordered Studies 05/31/19 17:53 CT head/brain wo con Stat 05/31/19 18:22 CT angio chest PE protocol Stat Hospital Course (1) Seizure: 33 y/o male h/o polysubstance abuse and history of seizure presents following new seizure with resultant dislocation and fracture of the L humerus Seizure EEG was normal. Seen by neurology with thought it was multi-factorial with benzo withdrawal & polysubstance use the predominant causes; possibly worsened by lack of sleep & fatigue. - Will get MRI brain in 1-2 months as suspicion for mass lesion is low with his normal CT and non-focal exam. Will follow up with tele-health neurology after. - Not discharged on any AED. Fracture of head of right humerus - Encouraged sling use to avoid pain. Ice & Tylenol as well. - Follow up with orthopedics in 1 week. Phone numbers given. Anxiety Bupropion in higher doses has been associated with seizure (450+ mg). Generally contra-indicated if a patient has a seizure. Linked patient up with [facility] residents as he could likely benefit from tele-health and close follow up. Could consider adjusting to Buspar, SSRI, or SNRI. - Defer to outpatient provider Polysubstance abuse - CM offered rehab services, would encourage. Covid-19 testing Per documentation, myalgias and travel history but no infectious symptoms. Currently negative pressure with COVID19 testing pending. Would encourage quarantine/isolation procedure following discharge while testing pending. (2) Fracture of head of left humerus: Associated with shoulder dislocation, can follow-up with orthopedics in the outpatient setting, unless symptoms progress. (3) Closed posterior dislocation of left shoulder: Reduced while in the ED. (4) Polysubstance abuse: Monitor for withdrawal. - None Total Time Total Time Spent Total Time Spent (In Minutes): 35 Total Time Includes: Examination of the Patient Discharge Plan Discharge Items Patient Disposition: Home - Self-Care Reason For Visit: SEIZURE,SHOULDER DISLOCATION,COVID RULE OUT Discharge Diagnosis: 1) Seizure 2) Should dislocation and impact fracture Activity: Resume your previous activity Non-emergency contact: Primary Care Provider and Neurologist Call non-emergency contact if: your symptoms worsen, your pain is not controlled, your pain is worsening and your temperature is above 101 Follow-up/Referrals: Irlanda Strickland MD [Physician] - (Or call [phone]. Please follow up with one of the resident doctors to help adjust your anti-anxiety medication.) Elena Stewart MD [Physician] - (Please sign up for [facility] Health Portal and have a tele-health visit in 1 month.) Bogdan Villarreal DO [Physician] - (Please follow up in 1-2 weeks for your shoulder fracture.) PCP,NO [Primary Care Provider] - Diet: Regular Addtl Attending Provider Instructions: Mr. Gamble, You were admitted after a seizure at home. You fell forward and hit your right shoulder. The neurologist (Dr. Stewart) saw you and would like you to get an MRI. However, you do not need to get the test here. Your CT scan of your head was normal, and so we feel relatively confident that there is no major issue. Given our concern for coronavirus, we are deferring the MRI right now as the entire machine would need to get cleaned. If your coronavirus testing is negative, it will allow the machine to continue serving other people without having to have it cleaned. We believe this seizure was a result of multiple ways that your seizure threshold was lowered. First, even though you tapered your Xanax, it still could cause your seizure level to lower. Additionally, using other substances, lack of sleep, caffeine, and other influences could have pushed you that way as well. There is some indication that higher doses of Wellbutrin XL can lower a seizure threshold. However, this seems to be at doses greater than 450 mg. As long as you are taking the dosage at 300 mg, you should be ok. However, you can connect with the [facility] family medicine residents to try to adjust this and move toward an anxiety medication that might be better for you. For your shoulder, there is a fracture of the head of your humerus (the long bone going from the shoulder to the elbow). The treatment is initial immobilization with a standard or collar and cuff sling, ice, and analgesics. Neither splinting nor casting is required. After about 2 weeks, you should start some pendulum exercises to help improve strength. Please follow up with an orthopedic doctor in 1-2 weeks to ensure you are healing well. Please follow up sooner if the pain becomes worse, if you have changes in strength in your hand or arm, or changes in sensation in the arm or fingers. Contact information was given above for an orthopedic office, but any orthopedic office will be acceptable. Finally, please self-isolate for now until your Covid-19/coronavirus testing returns. This will hopefully return in a few days. You are not having any symptoms which is good, but just to be sure, please stay at home for now. [facility] Pending Studies at Discharge: Yes (Coronavirus / Covid-19) Stand-Alone Forms: [facility], Smoking Cessation Medications and DC Order Prescriptions: Continued bupropion HCl [Wellbutrin XL] 300 mg Tablet Extended Release 24 Hr 300 mg PO QAM RF: 0 Discharge Orders: Discharge Order (Routine); Ordered 06/02/19 Ordered By: Vasquez Zuniga Admission Data Admit Date/Time: 05/31/19 20:52 Attending Provider: Vasquez Zuniga Admit Provider: Lucio Collazo Primary Care Provider: PCP,NO Other Providers: Vasquez Zuniga ; Elena Stewart Coding Level of Care Code D/C Day Management >30 mins Diagnoses Seizure R56.9 Fracture of head of left humerus S42.292A Encounter type: initial encounter Fracture type: closed Closed posterior dislocation of left shoulder S43.025A Encounter type: initial encounter Polysubstance abuse F19.10
[2019-06-04 06:54] LABS: 7-Aminoclonaz, Confirm NEGATIVE ng/mL (<25); Cocaine, Urine 375 ng/mL (<100); Hydro-Alp Ur, GC/MS NEGATIVE ng/mL (<25); Hydroxyethylflurazepam, Conf NEGATIVE ng/mL (<50); Hydroxymidazolam Ur, GC/MS NEGATIVE ng/mL (<50); Hydroxytriazolam NEGATIVE ng/mL (<50); Lorazepam, Ur GC/MS NEGATIVE ng/mL (<50); MDA negative; MDEA negative; MDMA (Ecstasy) Urine, Confirm negative; Marijuana Quant, GCMS Urine 233 ng/mL (<5); Nordiazepam, Confirm NEGATIVE ng/mL (<50); Oxazepam Ur, GC/MS NEGATIVE ng/mL (<50); Temazepam, Confirm NEGATIVE ng/mL (<50)
[2019-06-05 04:45] LABS: COVID-19 Patient Symptomatic? YES; PAN-SARS Coronavirus RNA NEGATIVE (NEGATIVE); SARS CoV2 RNA (COVID-19) NEGATIVE (NEGATIVE); SARS Coronavirus RNA Source NASOPHARYNGEAL
== END 2019-06-02 18:50 | disposition home or self-care (01) | DRG 563 ==
LOC: ED 17:41 → SUATTDRO 20:52 → 3E 20:52

== ENCOUNTER 2023-04-04 07:59 | Observation (INO) ==
--- NOTE | 2023-04-04 08:10 | Emergency Department Note ---
Impression & Plan Polysubstance abuse, Aspiration pneumonia, Respiratory failure, Elevated troponin ED Provider Note NAME: REMINGTON RENAE AGE: 37 SEX: M : 1985 ARRIVES VIA: Ambulance INFORMANT: Patient ED PROVIDER(S): Quincy Hammonds DO CHIEF COMPLAINT: AMS HPI: Patient is a 37-year-old male with a past medical history of seizure, anxiety, myalgia and polysubstance abuse who presents to the ER as he was found in respiratory distress. He was in his bedroom and EMS was called. He was found not to be breathing, blue and cyanotic with a pulse ox of 40s to 50s. He was brought in by EMS and IV was established was given oxygen and was given Narcan. Following the Narcan they do believe that he woke up. They noted that he was still very confused. He denies any headache or change in vision. No chest pain or shortness of breath. No belly pain, nausea, vomiting, or diarrhea. He admits to drinking alcohol last night as well as using cocaine. He denies any other drugs including narcotics. He does admit to using benzos as needed as needed for anxiety but has not used anything in the past 24 hours. Patient denies diabetes, hypertension, hyperlipidemia, CAD, history of sudden at a young age, and smoking. ADDITIONAL HISTORY OBTAINED: Per HPI Chronic Medical/Social Conditions Affecting Care: Per HPI PAST MEDICAL HISTORY:See Below PAST SURGICAL HISTORY:See Below FAMILY HISTORY:See Below SOCIAL HISTORY:See Below HOME MEDICATIONS:See Below ALLERGIES:See Below VITALS:See Below PHYSICAL EXAMINATION: GENERAL: Sitting up in bed, alert, slightly ill-appearing, disheveled EYE EXAM: normal conjunctiva. PERRL and EOM's grossly intact. OROPHARYNX: no exudate, no erythema, lips, buccal mucosa, and tongue normal and mucous membranes are moist NECK: supple, no nuchal rigidity, no adenopathy, non-tender LUNGS: Clear to auscultation. Normal chest wall mechanics HEART: Tachycardic, S1 normal and S2 normal ABDOMEN: abdomen soft, non-tender, normo-active bowel sounds, no masses, no rebound or guarding. BACK: Back is symmetrical on inspection and there is no deformity, no midline tenderness, no CVA tenderness. SKIN: no rashes and no bruising UPPER EXTREMITIES: upper extremities are grossly normal. LOWER EXTREMITIES: No pitting edema. Calves are equal bilaterally NEURO EXAM: Normal sensorium, cranial nerves II-XII [grossly] intact, normal speech, no [gross] weakness of arms, no [gross] weakness of legs. [No drift. Finger to nose intact. Gross sensation intact.] MEDICAL DECISION MAKING: Patient is a 37-year-old male who presents ER for the above-stated complaint. He has a history of polysubstance abuse. IV was established blood work was obtained. Labs show mild leukocytosis of 11.8 thousand. No significant anemia. VBG with a pH 7.22 and a CO2 in the 70s. BMP along with LFTs was unremarkable. Troponin was elevated at 25 and trended. Alcohol was still positive. Uncertain of the true cause of his symptoms but do favor this likely a polysubstance related or seizure. He was given IV fluids and monitor closely while in the ER. He was back to baseline. CT of the head was negative and chest x-ray suggested pneumonia. X-ray shoulder was unremarkable. Discussed case with the hospitalist for further evaluation management treatment. Consults/Care Managements Discussions: Per [facility] Triage Nursing notes reviewed. Limited review of prior medical records performed Vital Signs: reviewed and remarkable for tachycardic Differential diagnosis: Differential diagnoses includes but is not limited to pneumonia, bronchitis, COPD/Asthma exacerbation, pneumothorax, pulmonary embolism, congestive heart failure, acute coronary syndrome ER treatment provided: See below Diagnostics interpreted by me include EKG and cardiac monitoring as listed below: -Cardiac Monitoring: An order was placed for continuous cardiac monitoring. The monitor shows a rate of 121 with sinus rhythm. -ECG: Sinus tachycardia rate of 118 Normal axis No PVCs QTc 459 -Laboratory studies:Interpreted by me as stated above in MDM and shown below. Imaging studies: Xrays: As interpreted by me: Portable AP upright 1 view of the chest shows left lower lobe infiltrate CTs show: CT of the head was Procedures:none Critical Care: None Past Med/Surg History Medical History History of seizures Seizure Polysubstance abuse Surgical History No pertinent past surgical history Family History Grandmother (Maternal) Breast cancer Uncle Prostate cancer Other Colorectal cancer Denies family history of Ovarian cancer Myocardial infarction Social History Smoking Status: Current every day smoker Second Hand Exposure: No; Do You Dip or Chew Tobacco: No; Hx Alcohol Use: Yes Alcohol type: hard liquor Alcohol Intake Frequency: Monthly or Less Hx Substance Use: Yes Preferred Language: Somali Communication Ability: Effective Visual Impairment: No Limitations Hearing Ability: Normal 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 Beliefs That Will Affect Care: None marital status: Single Current Living Situation: Family current occupational status: employed current occupation: Director of customer experience Feels Safe at Home: Yes Childhood Exposure to Second-Hand Smoke: No Diet: regular caffeine: No during the past year weight has: remained stable Dental Care, Regularly: Yes Physical Activity Frequency: 5-6 Times per Week Seatbelt Use: always Sunscreen Use: Yes Assistive Devices: None Allergies Allergies Allergy/AdvReac Type Severity Reaction Status Date / Time No Known Allergies Allergy Verified 07/03/22 14:48 Home Meds Home Medications Medication Instructions Recorded Confirmed alprazolam 0.5 mg tablet 0.5 mg PO TID PRN Anxiety 04/04/23 04/04/23 dextromethorphan IR 45 1 tab PO DAILY 04/04/23 04/04/23 mg-bupropion ER 105 mg biphasic tablet (Auvelity) finasteride 1 mg tablet 1 mg PO DAILY 04/04/23 04/04/23 lamotrigine 100 mg tablet 100 mg PO DAILY 04/04/23 04/04/23 sildenafil 100 mg tablet 100 mg PO DAILY PRN Erectile 04/04/23 04/04/23 Dysfunction Results & Data (ED) Vital Signs Vital Signs - 24 hr 04/04/23 08:02 04/04/23 08:04 04/04/23 08:15 Temperature 37.3 C Temperature Source Oral Pulse Rate 115 H 118 H 114 H Pulse Rate from SpO2 Sensor Respiratory Rate 18 Respiratory Effort / Characteristics Non-Labored Spontaneous Respiratory Depth Normal Respiratory Pattern Regular Blood Pressure 153/99 H 153/99 H 143/91 H Blood Pressure Mean 117 117 108 Blood Pressure Position Sitting Pulse Oximetry 93 92 92 Oxygen Delivery Method Room Air Room Air Room Air Oxygen Flow Rate Sepsis Recent Fever Within 48 Hours No Sepsis New/Unexplained Change in Mental Status N/A Sepsis Action Taken by Nursing No Action Required 04/04/23 08:20 04/04/23 08:30 04/04/23 08:37 Temperature Temperature Source Pulse Rate 115 H 114 H 116 H Pulse Rate from SpO2 Sensor 115 H 234 H Respiratory Rate 21 Respiratory Effort / Characteristics Respiratory Depth Respiratory Pattern Blood Pressure Blood Pressure Mean Blood Pressure Position Pulse Oximetry Oxygen Delivery Method Oxygen Flow Rate Sepsis Recent Fever Within 48 Hours Sepsis New/Unexplained Change in Mental Status Sepsis Action Taken by Nursing 04/04/23 08:39 04/04/23 08:39 04/04/23 08:40 Temperature Temperature Source Pulse Rate 117 H 117 H Pulse Rate from SpO2 Sensor 232 H 234 H Respiratory Rate 16 20 Respiratory Effort / Characteristics Respiratory Depth Respiratory Pattern Blood Pressure 135/84 Blood Pressure Mean 92 Blood Pressure Position Pulse Oximetry 90 Oxygen Delivery Method Oxygen Flow Rate Sepsis Recent Fever Within 48 Hours Sepsis New/Unexplained Change in Mental Status Sepsis Action Taken by Nursing 04/04/23 08:50 04/04/23 09:00 04/04/23 09:00 Temperature Temperature Source Pulse Rate 117 H 117 H Pulse Rate from SpO2 Sensor 236 H 116 H Respiratory Rate 15 15 Respiratory Effort / Characteristics Respiratory Depth Respiratory Pattern Blood Pressure 132/88 Blood Pressure Mean 100 Blood Pressure Position Pulse Oximetry 93 92 Oxygen Delivery Method Oxygen Flow Rate Sepsis Recent Fever Within 48 Hours Sepsis New/Unexplained Change in Mental Status Sepsis Action Taken by Nursing 04/04/23 09:10 04/04/23 09:20 04/04/23 09:21 Temperature Temperature Source Pulse Rate 118 H 117 H Pulse Rate from SpO2 Sensor 118 H 117 H Respiratory Rate 14 19 Respiratory Effort / Characteristics Respiratory Depth Respiratory Pattern Blood Pressure Blood Pressure Mean Blood Pressure Position Pulse Oximetry 94 93 93 Oxygen Delivery Method Room Air Oxygen Flow Rate Sepsis Recent Fever Within 48 Hours Sepsis New/Unexplained Change in Mental Status Sepsis Action Taken by Nursing 04/04/23 09:30 04/04/23 09:30 04/04/23 09:40 Temperature Temperature Source Pulse Rate 120 H 121 H Pulse Rate from SpO2 Sensor 118 H 121 H Respiratory Rate 18 13 Respiratory Effort / Characteristics Respiratory Depth Respiratory Pattern Blood Pressure 136/75 Blood Pressure Mean 109 Blood Pressure Position Pulse Oximetry 92 92 Oxygen Delivery Method Oxygen Flow Rate Sepsis Recent Fever Within 48 Hours Sepsis New/Unexplained Change in Mental Status Sepsis Action Taken by Nursing 04/04/23 09:50 04/04/23 10:00 04/04/23 10:00 Temperature Temperature Source Pulse Rate 121 H 122 H Pulse Rate from SpO2 Sensor 122 H 122 H Respiratory Rate 18 15 Respiratory Effort / Characteristics Respiratory Depth Respiratory Pattern Blood Pressure 127/81 Blood Pressure Mean 97 Blood Pressure Position Pulse Oximetry 92 93 Oxygen Delivery Method Oxygen Flow Rate Sepsis Recent Fever Within 48 Hours Sepsis New/Unexplained Change in Mental Status Sepsis Action Taken by Nursing 04/04/23 10:10 04/04/23 10:20 04/04/23 10:30 Temperature Temperature Source Pulse Rate 121 H 117 H Pulse Rate from SpO2 Sensor 121 H 118 H Respiratory Rate 14 17 Respiratory Effort / Characteristics Respiratory Depth Respiratory Pattern Blood Pressure 123/75 Blood Pressure Mean 86 Blood Pressure Position Pulse Oximetry 90 92 Oxygen Delivery Method Oxygen Flow Rate Sepsis Recent Fever Within 48 Hours Sepsis New/Unexplained Change in Mental Status Sepsis Action Taken by Nursing 04/04/23 10:30 04/04/23 11:00 Temperature Temperature Source Pulse Rate 120 H Pulse Rate from SpO2 Sensor 118 H 116 H Respiratory Rate 18 Respiratory Effort / Characteristics Respiratory Depth Respiratory Pattern Blood Pressure 136/93 Blood Pressure Mean 107 Blood Pressure Position Pulse Oximetry 90 97 Oxygen Delivery Method Nasal Cannula Oxygen Flow Rate 3 Sepsis Recent Fever Within 48 Hours Sepsis New/Unexplained Change in Mental Status Sepsis Action Taken by Nursing Laboratory Data 04/04/23 08:06 04/04/23 08:06 Lab Results 04/04/23 04/04/23 04/04/23 Range/Units 08:06 08:08 08:11 WBC 11.84 H (4.8-10.8) K/ul RBC 5.35 (4.70-6.10) M/uL Hgb 16.5 (14.0-18.0) g/dl POC Hgb 17.0 (14.0-18.0) g/dl Hct 47.7 (42.0-52.0) % POC Hct 50 (42-52) % MCV 89.2 (80.0-100.0) fL MCH 30.8 (25.0-34.0) pg MCHC 34.6 (32.0-36.0) g/dL RDW Std Deviation 38.5 (36.4-46.3) fL RDW Coeff of Stiven 11.9 (11.5-14.5) % Plt Count 279 (130-400) K/uL MPV 9.7 (9.4-12.4) fL Immature Gran % (Auto) 0.4 % Neut % (Auto) 87.2 % Lymph % (Auto) 6.6 % Trigg % (Auto) 4.6 % Eos % (Auto) 0.4 % Baso % (Auto) 0.8 % Neut # (Auto) 10.32 H (1.40-6.50) K/uL Lymph # (Auto) 0.78 L (1.20-3.40) K/uL Trigg # (Auto) 0.55 (0.11-0.59) K/uL Eos # (Auto) 0.05 (0.00-0.50) K/uL Baso # (Auto) 0.09 (0.00-0.20) K/uL Immature Gran # (Auto) 0.05 (0.01-0.20) K/uL VBG pH 7.22 L (7.36-7.41) VBG pCO2 72 H (38-50) mmHg VBG pO2 < 20 mmHg VBG HCO3 30 mmol/L VBG O2 Saturation < 60.0 % VBG Base Excess -0.2 mEq/L POC Sodium 139 (135-144) mmol/L Sodium 140 (136-145) mmol/L POC Potassium 4.4 (3.3-5.0) mmol/L Potassium 4.6 (3.5-5.1) mmol/L POC Chloride 98 L (101-112) mmol/L Chloride 100 (98-107) mmol/L Carbon Dioxide 27 (21-32) mmol/L POC Total CO2 28 (24-31) mmol/L Anion Gap 13 H (3-11) POC Anion Gap 19.0 (16-25) mmol/L POC BUN 11 (7-18) mg/dl BUN 12 (6-23) mg/dl Creatinine 1.21 (0.6-1.4) mg/dl POC Creatinine 1.3 (0.6-1.3) mg/dl Est Cr Clr Drug Dosing 71.4 ml/min Est GFR ( Amer) 87.5 ml/min Est GFR (Non-Af Amer) 75.5 ml/min BUN/Creatinine Ratio 9.9 L (10-20) Glucose 114 H (70-99(Fasting)) mg/dl POC Glucose (other) 112 H (70-99) mg/dl Lactate (0.4-2.0) mmol/L Calcium 9.5 (8.6-10.3) mg/dl POC Ioniz Calcium Ang 1.10 L (1.12-1.32) mmol/l Total Bilirubin 0.4 (0.2-1.0) mg/dl AST 50 H (13-39) U/L ALT 51 (7-52) U/L Alkaline Phosphatase 147 H (34-104) U/L Troponin I High Sens 25.8 H (0-20) pg/ml Total Protein 7.2 (6.0-8.3) gm/dl Albumin 4.7 (3.4-5.0) gm/dl Globulin 2.5 (2.5-4.0) gm/dl Albumin/Globulin Ratio 1.9 (0.9-2) Lipase 18 (11-82) U/L Prolactin ng/ml Salicylates < 3.0 L (3.0-30) mg/dl Acetaminophen < 3 L (10-30) ug/ml Ethyl Alcohol mg/dL 15.9 H (<10.0) mg/dl 04/04/23 04/04/23 04/04/23 Range/Units 09:38 10:56 10:59 WBC (4.8-10.8) K/ul RBC (4.70-6.10) M/uL Hgb (14.0-18.0) g/dl POC Hgb (14.0-18.0) g/dl Hct (42.0-52.0) % POC Hct (42-52) % MCV (80.0-100.0) fL MCH (25.0-34.0) pg MCHC (32.0-36.0) g/dL RDW Std Deviation (36.4-46.3) fL RDW Coeff of Stiven (11.5-14.5) % Plt Count (130-400) K/uL MPV (9.4-12.4) fL Immature Gran % (Auto) % Neut % (Auto) % Lymph % (Auto) % Trigg % (Auto) % Eos % (Auto) % Baso % (Auto) % Neut # (Auto) (1.40-6.50) K/uL Lymph # (Auto) (1.20-3.40) K/uL Trigg # (Auto) (0.11-0.59) K/uL Eos # (Auto) (0.00-0.50) K/uL Baso # (Auto) (0.00-0.20) K/uL Immature Gran # (Auto) (0.01-0.20) K/uL VBG pH 7.32 L (7.36-7.41) VBG pCO2 60 H (38-50) mmHg VBG pO2 25 mmHg VBG HCO3 31 mmol/L VBG O2 Saturation < 60.0 % VBG Base Excess 3.0 mEq/L POC Sodium (135-144) mmol/L Sodium (136-145) mmol/L POC Potassium (3.3-5.0) mmol/L Potassium (3.5-5.1) mmol/L POC Chloride (101-112) mmol/L Chloride (98-107) mmol/L Carbon Dioxide (21-32) mmol/L POC Total CO2 (24-31) mmol/L Anion Gap (3-11) POC Anion Gap (16-25) mmol/L POC BUN (7-18) mg/dl BUN (6-23) mg/dl Creatinine (0.6-1.4) mg/dl POC Creatinine (0.6-1.3) mg/dl Est Cr Clr Drug Dosing ml/min Est GFR ( Amer) ml/min Est GFR (Non-Af Amer) ml/min BUN/Creatinine Ratio (10-20) Glucose (70-99(Fasting)) mg/dl POC Glucose (other) (70-99) mg/dl Lactate 1.1 (0.4-2.0) mmol/L Calcium (8.6-10.3) mg/dl POC Ioniz Calcium Ang (1.12-1.32) mmol/l Total Bilirubin (0.2-1.0) mg/dl AST (13-39) U/L ALT (7-52) U/L Alkaline Phosphatase (34-104) U/L Troponin I High Sens 102.3 H* D (0-20) pg/ml Total Protein (6.0-8.3) gm/dl Albumin (3.4-5.0) gm/dl Globulin (2.5-4.0) gm/dl Albumin/Globulin Ratio (0.9-2) Lipase (11-82) U/L Prolactin 21.57 ng/ml Salicylates (3.0-30) mg/dl Acetaminophen (10-30) ug/ml Ethyl Alcohol mg/dL (<10.0) mg/dl Administered Medications Discontinued Medications Alprazolam (Alprazolam 0.5 Mg Tablet) 1 mg PO ONE ONE Stop: 04/04/23 12:07 Last Admin: 04/04/23 12:21 Dose: 1 mg Documented By: AMRIK Sodium Chloride (Nss) 1,000 mls @ 999 mls/hr IV .Q1H1M [place] Stop: 04/04/23 10:15 Last Infusion: 04/04/23 10:32 Dose: Infused Documented By: Admin: 04/04/23 09:26 Dose: 999 mls/hr Documented By: Infusion: 04/04/23 09:23 Dose: Infused Documented By: Admin: 04/04/23 08:12 Dose: 999 mls/hr Documented By: MMZ Ampicillin Sodium/Sulbactam Sodium 3,000 mg/ Sodium Chloride 100 mls @ 200 mls/hr IV NOW STA Stop: 04/04/23 10:03 Last Infusion: 04/04/23 10:53 Dose: Infused Documented By: Admin: 04/04/23 10:03 Dose: 200 mls/hr Documented By: FIFI Imaging Data Radiologist's Impression: Chest X-Ray 04/04/23 08:07 XR chest 1V portable CLINICAL HISTORY: Chest pain, nonspecific TECHNIQUE: Single frontal radiograph of the chest was obtained. Comparison: None available at the time of this dictation. FINDINGS: No lines and tubes are seen. The cardiomediastinal silhouette is normal. The lungs are clear. No evidence of pleural effusion or pneumothorax. IMPRESSION: No acute chest disease. ACT 112: Negative or not required by law. Electronically signed by: Wyatt Camarena M.D. 04/04/2023 8:[address] 04/04/23 08:11 CT head/brain wo con CLINICAL HISTORY: ams Technique: Contiguous axial CT images of the head were acquired from the base of the skull to the vertex without intravenous contrast administration. Images were viewed in brain, subdural and bone windows. Automated dose lowering techniques and/or adjustment according to patient size were utilized for this exam. Comparison: Comparison is made to CT head 05/31/2019 Findings: The ventricles, basal cisterns, and cerebral sulci are normal. There is no acute intracranial hemorrhage or evidence of acute territorial infarction. Neither mass effect, shift of the midline structures, nor abnormal extra-axial fluid collections are shown. Imaged portions of the paranasal sinuses and mastoid air cells are clear. The orbits appear normal. There are no acute fractures of the calvaria or scalp swelling. Impression: No acute intracranial hemorrhage, no evidence of acute territorial infarction or other acute intracranial disease process. ACT 112: Negative or not required by law. Electronically signed by: Wyatt Camarena M.D. 04/04/2023 8:35 AM Shoulder X-Ray 04/04/23 08:29 LEFT SHOULDER 3 VIEWS CLINICAL HISTORY: Left shoulder pain. FINDINGS: 3 views of the left shoulder are compared to study dated 11/07/2019. The skeletal structures are well-mineralized. There is no radiographic evidence of fracture or dislocation. The glenohumeral and acromioclavicular joints are maintained. Mild arthritic change is seen at the glenohumeral articulation. The overlying soft tissues are within normal limits. Question mild airspace opacities in the left lung. IMPRESSION: 1. No acute bony abnormality is identified. 2. Question mild airspace opacities in the left lower lung. Correlate clinically for evidence of a mild pneumonitis. Electronically signed by: Elan Leija M.D. 04/04/2023 8:59 AM Discharge Plan Visit Data Chief Complaint: Overdose (Accidental) ED Provider: Quincy Hammonds Discharge Problem: Polysubstance abuse, Aspiration pneumonia, Respiratory failure, Elevated troponin Discharge Instructions Interventions: ED Discharge Assessment Last Done: 04/04/23 12:18 Discharge Problem: Aspiration pneumonia Qualifiers: Aspiration pneumonia type: unspecified Laterality: unspecified laterality Lung location: unspecified part of lung Qualified Code(s): J69.0 - Pneumonitis due to inhalation of food and vomit Respiratory failure Qualifiers: Chronicity: acute Respiratory failure complication: hypoxia Qualified Code(s): J96.01 - Acute respiratory failure with hypoxia
[2023-04-04] MEDS: SODIUM CHLORIDE 0.9% 1,000 ML IV SCH ×2 (08:12→09:26)
[2023-04-04 08:21] LABS: Base Excess VBG -0.2 mEq/L; HCO3 VBG 30 mmol/L; Oxygen Saturation VBG < 60.0 %; PCO2 VBG 72 mmHg (38-50); PO2 VBG < 20 mmHg; pH VBG 7.22 (7.36-7.41)
[2023-04-04 08:23] LABS: iSTAT Creatinine 1.3 mg/dl (0.6-1.3); iSTAT Ionized Calcium 1.1 mmol/l (1.12-1.32); iSTAT Potassium 4.4 mmol/L (3.3-5.0)
--- NOTE | 2023-04-04 08:34 | XRay Report ---
XR chest 1V portable CLINICAL HISTORY: Chest pain, nonspecific TECHNIQUE: Single frontal radiograph of the chest was obtained. Comparison: None available at the time of this dictation. FINDINGS: No lines and tubes are seen. The cardiomediastinal silhouette is normal. The lungs are clear. No evid ence of pleural effusion or pneumothorax. IMPRESSION: No acute chest disease. ACT 112: Negative or not required by law. Electronically signed by: Wyatt Camarena M.D. 04/04/2023 8:32 AM
--- NOTE | 2023-04-04 08:37 | CT Scan Report ---
CT head/brain wo con CLINICAL HISTORY: ams Technique: Contiguous axial CT images of the head were acquired from the base of the skull to the devi adam without intravenous contrast administration. Images were viewed in brain, subdural and [facility]. Automated dose lowering techniques and/or adjustment according to patient size were utilized for this exam. Comparison: Comparison is made to CT head 05/31/2019 Findings: The ventricles, basal cisterns, and cerebral sulci are normal. There is no acute intracranial hemorrh age or evidence of acute territorial infarction. Neither mass effect, shift of the midline structures , nor abnormal extra-axial fluid collections are shown. Imaged portions of the paranasal sinuses and mastoid air cells are clear. The orbits appear normal. There are no acute fractures of the calvaria or scalp swelling. Impression: No acute intracranial hemorrhage, no evidence of acute territorial infarction or other acute intracra nial disease process. ACT 112: Negative or not required by law. Electronically signed by: yWatt Camarena M.D. 04/04/2023 8:35 AM
[2023-04-04 08:38] LABS: Basophils # (auto) 0.09 K/uL (0.00-0.20); Basophils % (auto) 0.8 %; Eosinophils # (auto) 0.05 K/uL (0.00-0.50); Eosinophils % (auto) 0.4 %; Hematocrit (blood only) 47.7 % (42.0-52.0); Hemoglobin 16.5 g/dl (14.0-18.0); Immature Granulocytes # (auto) 0.05 K/uL (0.01-0.20); Immature Granulocytes % (auto) 0.4 %; Lymphocytes # (auto) 0.78 K/uL (1.20-3.40); Lymphocytes % (auto) 6.6 %; Mean Corpuscular Hemoglobin 30.8 pg (25.0-34.0); Mean Corpuscular Hgb Conc 34.6 g/dL (32.0-36.0); Mean Corpuscular Volume 89.2 fL (80.0-100.0); Mean Platelet Volume 9.7 fL (9.4-12.4); Monocytes # (auto) 0.55 K/uL (0.11-0.59); Monocytes % (auto) 4.6 %; Neutrophils # (auto) 10.32 K/uL (1.40-6.50); Neutrophils % (auto) 87.2 %; Platelet Count 279 K/uL (130-400); RDW Coefficient of Variation 11.9 % (11.5-14.5); RDW Standard Deviation 38.5 fL (36.4-46.3); Red Blood Count 5.35 M/uL (4.70-6.10); White Blood Count 11.84 K/ul (4.8-10.8)
[2023-04-04 08:42] LABS: Acetaminophen < 3 ug/ml (10-30); Salicylate < 3.0 mg/dl (3.0-30)
[2023-04-04 08:44] LABS: Albumin Globulin Ratio 1.9 (0.9-2); Albumin Level 4.7 gm/dl (3.4-5.0); BUN Creatinine Ratio 9.9 (10-20); Bilirubin,Total 0.4 mg/dl (0.2-1.0); Calcium 9.5 mg/dl (8.6-10.3); Creatinine Clr Calc Pharmacy 71.4 ml/min; Est GFR (African American) 87.5 ml/min; Est GFR (Non-African American) 75.5 ml/min; Globulin 2.5 gm/dl (2.5-4.0); Potassium 4.6 mmol/L (3.5-5.1); Total Protein 7.2 gm/dl (6.0-8.3)
[2023-04-04 08:50] LABS: Troponin I High Sensitivity 25.8 pg/ml (0-20)
--- NOTE | 2023-04-04 09:00 | XRay Report ---
LEFT SHOULDER 3 VIEWS CLINICAL HISTORY: Left shoulder pain. FINDINGS: 3 views of the left shoulder are compared to study dated 11/07/2019. The skeletal structures are well-mineralized. There is no radiographic evidence of fracture or dislocation. The glenohumeral and acromioclavicular joints are maintained. Mild arthritic change is seen at the glenohumeral articu lation. The overlying soft tissues are within normal limits. Question mild airspace opacities in the left lung. IMPRESSION: 1. No acute bony abnormality is identified. 2. Question mild airspace opacities in the left lower lung. Correlate clinically for evidence of a mi ld pneumonitis. Electronically signed by: Elan Leija M.D. 04/04/2023 8:59 AM
[2023-04-04] MEDS ORDERED: AMPICILLIN/SULBACTAM SOD 3,000 MG in SODIUM CHLOR 0.9% MINI-B 100 ML IV STA (09:34)
--- NOTE | 2023-04-04 10:25 | History & Physical Report ---
Date of Service April 04, 2023 Assessment & Plan (1) Polysubstance abuse: Plan: Unintentional overdose the evening of 04/03; found by parents in acute respiratory distress/hypoxic the morning of 04/04 EMS administered Narcan on arrival, and provided oxygen/bagged the patient EKG revealed sinus tachycardia at 118 bpm; QTc 459 VB.22/72/<20/30 Repeat VBG ordered, pending A.m. CBC, BMP (2) Aspiration pneumonia: Plan: Leukocytosis at 11.84 with a neutrophil predominance Unasyn started in the ED (3) Anxiety: Plan: Continue sertraline Hold alprazolam PRN (4) History of seizures: Plan: Seizure precautions Lactate ordered, pending Prolactin ordered, pending Ativan 2 mg IV q5m x 3max doses as needed for seizure-like activity Continue lamotrigine Plan Disposition: History of Present Illness Chief Complaint: Overdose (accidental) Primary Care Provider: Evens Mayers DO Allergies Allergy/AdvReac Type Severity Reaction Status Date / Time No Known Allergies Allergy Verified 07/03/22 14:48 Home Medications Medication Instructions Recorded Confirmed Type alprazolam 1 mg tablet 0.5 - 1 mg PO Q6H PRN Anxiety 11/07/19 07/03/22 History lamotrigine 100 mg tablet 100 mg PO BID #60 tabs 09/12/21 07/03/22 Rx sertraline 100 mg tablet 200 mg (2 x 100 mg) PO DAILY #30 09/12/21 07/03/22 Rx tabs Past Med/Surg History Medical History (Updated 04/04/23 @ 10:23 by Guillermo Amezquita PA-C) History of seizures Seizure Polysubstance abuse Surgical History No pertinent past surgical history Family History Grandmother (Maternal) Breast cancer Uncle Prostate cancer Other Colorectal cancer Denies family history of Ovarian cancer Myocardial infarction Social History Smoking Status: Current every day smoker Second Hand Exposure: No; Do You Dip or Chew Tobacco: No; Hx Alcohol Use: Yes Alcohol type: hard liquor Alcohol Intake Frequency: Monthly or Less Hx Substance Use: Yes Preferred Language: Wolof Communication Ability: Effective Visual Impairment: No Limitations Hearing Ability: Normal Reservation Sales Agent Required: No Beliefs That Will Affect Care: None marital status: Single Current Living Situation: Family current occupational status: employed current occupation: Director of customer experience Feels Safe at Home: Yes Childhood Exposure to Second-Hand Smoke: No Diet: regular caffeine: No during the past year weight has: remained stable Dental Care, Regularly: Yes Physical Activity Frequency: 5-6 Times per Week Seatbelt Use: always Sunscreen Use: Yes Assistive Devices: None Review of Systems Review of Systems: See HPI above Physical Exam Physical Exam: General: no acute distress; non-toxic appearing; well-nourished; cooperative HEENT: normocephalic, atraumatic; no scleral icterus; PERRLA w/ EOMs intact; moist mucus membrane; vision and hearing grossly intact Neck: supple; no JVD; no lymphadenopathy; trachea midline Skin: warm, dry without signs of tenting; no cyanosis; no rashes, bruising, lesions, or erythema noted CV: chest wall NTP; RRR; S1/S2 normal; no murmurs/rubs/gallops; pulses intact and symmetric at radial, DP, and PT Lungs: no acute respiratory distress; symmetrical chest wall expansion; clear breath sounds across all lung vences w/o adventitious sounds; no wheezing ABD: Soft, NTP; BS present; no rebound/guarding; no ascites; no distention; negative CVA tenderness MSK: no tics or fasciculations; no edema noted in the LEs b/l, nonerythematous Neuro: A&Ox3; normal mood and affect; fluent speech; no focal deficits; sensation grossly intact in the LEs b/l Lethargic Results & Data Results & Data Vital Signs (Past 12 Hours) Vital Signs Temp Pulse Resp BP Pulse Ox O2 Del Method 04/04/23 09:21 93 Room Air 04/04/23 08:30 114 H 04/04/23 08:15 114 H 143/91 H 92 Room Air 04/04/23 08:04 118 H 153/99 H 92 Room Air 04/04/23 08:02 37.3 C 115 H 18 153/99 H 93 Room Air Laboratory Results Abnormal lab results 04/04/23 04/04/23 04/04/23 Range/Units 08:06 08:08 08:11 WBC 11.84 H (4.8-10.8) K/ul Neut # (Auto) 10.32 H (1.40-6.50) K/uL Lymph # (Auto) 0.78 L (1.20-3.40) K/uL VBG pH 7.22 L (7.36-7.41) VBG pCO2 72 H (38-50) mmHg POC Chloride 98 L (101-112) mmol/L Anion Gap 13 H (3-11) BUN/Creatinine Ratio 9.9 L (10-20) Glucose 114 H (70-99(Fasting)) mg/dl POC Glucose (other) 112 H (70-99) mg/dl POC Ioniz Calcium Ang 1.10 L (1.12-1.32) mmol/l AST 50 H (13-39) U/L Alkaline Phosphatase 147 H (34-104) U/L Troponin I High Sens 25.8 H (0-20) pg/ml Salicylates < 3.0 L (3.0-30) mg/dl Acetaminophen < 3 L (10-30) ug/ml Ethyl Alcohol mg/dL 15.9 H (<10.0) mg/dl Diagnostic Findings Chest X-Ray 04/04/23 08:07 XR chest 1V portable CLINICAL HISTORY: Chest pain, nonspecific TECHNIQUE: Single frontal radiograph of the chest was obtained. Comparison: None available at the time of this dictation. FINDINGS: No lines and tubes are seen. The cardiomediastinal silhouette is normal. The lungs are clear. No evidence of pleural effusion or pneumothorax. IMPRESSION: No acute chest disease. ACT 112: Negative or not required by law. Electronically signed by: Wyatt Camarena M.D. 04/04/2023 8:[address] 04/04/23 08:11 CT head/brain wo con CLINICAL HISTORY: ams Technique: Contiguous axial CT images of the head were acquired from the base of the skull to the vertex without intravenous contrast administration. Images were viewed in brain, subdural and bone windows. Automated dose lowering techniques and/or adjustment according to patient size were utilized for this exam. Comparison: Comparison is made to CT head 05/31/2019 Findings: The ventricles, basal cisterns, and cerebral sulci are normal. There is no acute intracranial hemorrhage or evidence of acute territorial infarction. Neither mass effect, shift of the midline structures, nor abnormal extra-axial fluid collections are shown. Imaged portions of the paranasal sinuses and mastoid air cells are clear. The orbits appear normal. There are no acute fractures of the calvaria or scalp swelling. Impression: No acute intracranial hemorrhage, no evidence of acute territorial infarction or other acute intracranial disease process. ACT 112: Negative or not required by law. Electronically signed by: Wyatt Camarena M.D. 04/04/2023 8:35 AM Shoulder X-Ray 04/04/23 08:29 LEFT SHOULDER 3 VIEWS CLINICAL HISTORY: Left shoulder pain. FINDINGS: 3 views of the left shoulder are compared to study dated 11/07/2019. The skeletal structures are well-mineralized. There is no radiographic evidence of fracture or dislocation. The glenohumeral and acromioclavicular joints are maintained. Mild arthritic change is seen at the glenohumeral articulation. The overlying soft tissues are within normal limits. Question mild airspace opacities in the left lung. IMPRESSION: 1. No acute bony abnormality is identified. 2. Question mild airspace opacities in the left lower lung. Correlate clinically for evidence of a mild pneumonitis. Electronically signed by: Elan Leija M.D. 04/04/2023 8:59 AM PG Care Time/CCT Total # of Minutes Spent Total Time Spent with Patient: Total time spent is greater than 50% in coordination of care (as documented) at patient's floor/unit and/or counseling patient: Coding Diagnoses Polysubstance abuse F19.10 Aspiration pneumonia J69.0 Anxiety F41.9 History of seizures Z87.898
[2023-04-04] MEDS ORDERED: LORazepam 2 MG in SYRINGE 1 ML IV PRN (10:30)
[2023-04-04 11:05] LABS: HCO3 VBG 31 mmol/L; Oxygen Saturation VBG < 60.0 %; PCO2 VBG 60 mmHg (38-50); PO2 VBG 25 mmHg; pH VBG 7.32 (7.36-7.41)
[2023-04-04] MEDS ORDERED: ALPRAZolam 0.5 MG TABLET PO ONE (12:06)
[2023-04-04] MEDS ORDERED: ACETAMINOPHEN 325 MG TAB PO PRN (12:17)
--- NOTE | 2023-04-04 13:07 | History & Physical Report ---
Date of Service April 04, 2023 Assessment & Plan (1) Aspiration pneumonia: (2) Seizure: (3) Anxiety: (4) Myalgia: (5) Closed posterior dislocation of left shoulder: (6) Polysubstance abuse: Plan Admit to [facility] with telemetry Seizure precautions Vital signs protocol Activity as tolerated Regular diet Neurology consult with EEG ordered Continue Wellbutrin and dextromethorphan, Lamictal, Xanax. Concerns for aspiration pneumonia will empirically start on Zosyn at this time. Reviewed chest x-ray which is negative for infiltrate. CODE STATUS patient is a full code Discussed with patient the need for admission. Patient agrees. Admission and Anticipated Discharge Date Admission Date: April 04, 2023 History of Present Illness Chief Complaint: Seizure episode earlier this morning Primary Care Provider: Jose Antonio Gimenez MD 36-year-old gentleman history of seizures, history of anxiety on benzodiazepines, polysubstance abuse, history of depression very bipolar presented to the ER after an episode of seizures. Seizures happened at home. Patient was found not to be breathing blue and cyanotic with a pulse ox of 40- 50. He was brought in by EMS and had to be given a dose of Narcan. Patient was initially noted to be very confused. Denies any chest pain shortness of breath headache or changes in vision at that time. Patient has history of alcohol use and admitted to using cocaine the previous night till 3 AM. Initial evaluation done in the ER, seizure precautions and initial CT scan showed no evidence of bleed or any abnormal findings. Patient agrees to stay in the hospital for further evaluation including EEG and a neurology checkup. Also noted that patient was started on Unasyn for concerns of aspiration. Noted that patient has been on Wellbutrin for some time along with dextromethorphan. Allergies Allergy/AdvReac Type Severity Reaction Status Date / Time No Known Allergies Allergy Verified 07/03/22 14:48 Home Medications Medication Instructions Recorded Confirmed Type alprazolam 0.5 mg tablet 0.5 mg PO TID PRN Anxiety 04/04/23 04/04/23 History dextromethorphan IR 45 1 tab PO DAILY 04/04/23 04/04/23 History mg-bupropion ER 105 mg biphasic tablet (Auvelity) finasteride 1 mg tablet 1 mg PO DAILY 04/04/23 04/04/23 History lamotrigine 100 mg tablet 100 mg PO DAILY 04/04/23 04/04/23 History sildenafil 100 mg tablet 100 mg PO DAILY PRN Erectile 04/04/23 04/04/23 History Dysfunction Past Med/Surg History Medical History History of seizures Seizure Polysubstance abuse Surgical History No pertinent past surgical history Family History Grandmother (Maternal) Breast cancer Uncle Prostate cancer Other Colorectal cancer Denies family history of Ovarian cancer Myocardial infarction Social History Smoking Status: Current every day smoker Second Hand Exposure: No; Do You Dip or Chew Tobacco: No; Hx Alcohol Use: Yes Alcohol type: hard liquor Alcohol Intake Frequency: Monthly or Less Hx Substance Use: Yes Preferred Language: Estonian Communication Ability: Effective Visual Impairment: No Limitations Hearing Ability: Normal Site Specialist Required: No Beliefs That Will Affect Care: None marital status: Single Current Living Situation: Family current occupational status: employed current occupation: Director of customer experience Feels Safe at Home: Yes Childhood Exposure to Second-Hand Smoke: No Diet: regular caffeine: No during the past year weight has: remained stable Dental Care, Regularly: Yes Physical Activity Frequency: 5-6 Times per Week Seatbelt Use: always Sunscreen Use: Yes Assistive Devices: None Review of Systems Review of Systems: Reviewed all systems as noted in H/P , rest reviewed as negative Physical Exam Physical Exam: HEENT:No JVD , Normocephalic , atraumatic CV: S1/S2+ , no murmurs Resp: Air entry present bilaterally.no crackles, no wheeze . GI: Abdomen soft non tender . Musculoskeletal: examined for joint tenderness. Left shoulder joint pain noted. patient has chronic shoulder dislocation issues which gets aggravated during seizure episodes Skin: no rashes Psych: Normal affect Neuro: Patient is awake alert not in distress , No focal neuro deficits noted Ext: no edema. Results & Data Results & Data Vital Signs (Past 12 Hours) Vital Signs Temp Pulse Resp BP Pulse Ox O2 Del Method O2 Flow Rate 04/04/23 12:49 37.0 C 04/04/23 12:20 111 H 17 111/76 95 Nasal Cannula 2 04/04/23 12:18 Room Air 04/04/23 12:00 121/81 04/04/23 11:30 128/86 91 Nasal Cannula 3 04/04/23 11:00 136/93 97 Nasal Cannula 3 04/04/23 10:30 120 H 18 90 04/04/23 10:30 123/75 04/04/23 10:20 117 H 17 92 04/04/23 10:10 121 H 14 90 04/04/23 10:00 127/81 04/04/23 10:00 122 H 15 93 04/04/23 09:50 121 H 18 92 04/04/23 09:40 121 H 13 92 04/04/23 09:30 120 H 18 92 04/04/23 09:30 136/75 04/04/23 09:21 93 Room Air 04/04/23 09:20 117 H 19 93 04/04/23 09:10 118 H 14 94 04/04/23 09:00 132/88 04/04/23 09:00 117 H 15 92 04/04/23 08:50 117 H 15 93 04/04/23 08:40 117 H 20 90 04/04/23 08:39 135/84 04/04/23 08:39 117 H 16 04/04/23 08:37 116 H 21 04/04/23 08:30 114 H 04/04/23 08:20 115 H 04/04/23 08:15 114 H 143/91 H 92 Room Air 04/04/23 08:04 118 H 153/99 H 92 Room Air 04/04/23 08:02 37.3 C 115 H 18 153/99 H 93 Room Air Laboratory Results Laboratory Results WBC 11.84 K/ul (4.8-10.8) H 04/04/23 08:06 RBC 5.35 M/uL (4.70-6.10) 04/04/23 08:06 Hgb 16.5 g/dl (14.0-18.0) 04/04/23 08:06 POC Hgb 17.0 g/dl (14.0-18.0) 04/04/23 08:11 Hct 47.7 % (42.0-52.0) 04/04/23 08:06 POC Hct 50 % (42-52) 04/04/23 08:11 MCV 89.2 fL (80.0-100.0) 04/04/23 08:06 MCH 30.8 pg (25.0-34.0) 04/04/23 08:06 MCHC 34.6 g/dL (32.0-36.0) 04/04/23 08:06 RDW Std Deviation 38.5 fL (36.4-46.3) 04/04/23 08:06 RDW Coeff of Stiven 11.9 % (11.5-14.5) 04/04/23 08:06 Plt Count 279 K/uL (130-400) 04/04/23 08:06 MPV 9.7 fL (9.4-12.4) 04/04/23 08:06 Immature Gran % (Auto) 0.4 % 04/04/23 08:06 Neut % (Auto) 87.2 % 04/04/23 08:06 Lymph % (Auto) 6.6 % 04/04/23 08:06 [place] % (Auto) 4.6 % 04/04/23 08:06 Eos % (Auto) 0.4 % 04/04/23 08:06 Baso % (Auto) 0.8 % 04/04/23 08:06 Neut # (Auto) 10.32 K/uL (1.40-6.50) H 04/04/23 08:06 Lymph # (Auto) 0.78 K/uL (1.20-3.40) L 04/04/23 08:06 [place] # (Auto) 0.55 K/uL (0.11-0.59) 04/04/23 08:06 Eos # (Auto) 0.05 K/uL (0.00-0.50) 04/04/23 08:06 Baso # (Auto) 0.09 K/uL (0.00-0.20) 04/04/23 08:06 Immature Gran # (Auto) 0.05 K/uL (0.01-0.20) 04/04/23 08:06 VBG pH 7.32 (7.36-7.41) L 04/04/23 10:59 VBG pCO2 60 mmHg (38-50) H 04/04/23 10:59 VBG pO2 25 mmHg 04/04/23 10:59 VBG HCO3 31 mmol/L 04/04/23 10:59 VBG O2 Saturation < 60.0 % 04/04/23 10:59 VBG Base Excess 3.0 mEq/L 04/04/23 10:59 POC Sodium 139 mmol/L (135-144) 04/04/23 08:11 Sodium 140 mmol/L (136-145) 04/04/23 08:06 POC Potassium 4.4 mmol/L (3.3-5.0) 04/04/23 08:11 Potassium 4.6 mmol/L (3.5-5.1) 04/04/23 08:06 POC Chloride 98 mmol/L (101-112) L 04/04/23 08:11 Chloride 100 mmol/L (98-107) 04/04/23 08:06 Carbon Dioxide 27 mmol/L (21-32) 04/04/23 08:06 POC Total CO2 28 mmol/L (24-31) 04/04/23 08:11 Anion Gap 13 (3-11) H 04/04/23 08:06 POC Anion Gap 19.0 mmol/L (16-25) 04/04/23 08:11 POC BUN 11 mg/dl (7-18) 04/04/23 08:11 BUN 12 mg/dl (6-23) 04/04/23 08:06 Creatinine 1.21 mg/dl (0.6-1.4) 04/04/23 08:06 POC Creatinine 1.3 mg/dl (0.6-1.3) 04/04/23 08:11 Est Cr Clr Drug Dosing 71.4 ml/min 04/04/23 08:06 Est GFR ( Amer) 87.5 ml/min 04/04/23 08:06 Est GFR (Non-Af Amer) 75.5 ml/min 04/04/23 08:06 BUN/Creatinine Ratio 9.9 (10-20) L 04/04/23 08:06 Glucose 114 mg/dl (70-99(Fasting)) H 04/04/23 08:06 POC Glucose (other) 112 mg/dl (70-99) H 04/04/23 08:11 Lactate 1.1 mmol/L (0.4-2.0) 04/04/23 10:59 Calcium 9.5 mg/dl (8.6-10.3) 04/04/23 08:06 POC Ioniz Calcium Nag 1.10 mmol/l (1.12-1.32) L 04/04/23 08:11 Total Bilirubin 0.4 mg/dl (0.2-1.0) 04/04/23 08:06 AST 50 U/L (13-39) H 04/04/23 08:06 ALT 51 U/L (7-52) 04/04/23 08:06 Alkaline Phosphatase 147 U/L (34-104) H 04/04/23 08:06 Troponin I High Sens 102.3 pg/ml (0-20) H* D 04/04/23 09:38 Total Protein 7.2 gm/dl (6.0-8.3) 04/04/23 08:06 Albumin 4.7 gm/dl (3.4-5.0) 04/04/23 08:06 Globulin 2.5 gm/dl (2.5-4.0) 04/04/23 08:06 Albumin/Globulin Ratio 1.9 (0.9-2) 04/04/23 08:06 Lipase 18 U/L (11-82) 04/04/23 08:06 Prolactin 21.57 ng/ml 04/04/23 10:56 Salicylates < 3.0 mg/dl (3.0-30) L 04/04/23 08:06 Acetaminophen < 3 ug/ml (10-30) L 04/04/23 08:06 Ethyl Alcohol mg/dL 15.9 mg/dl (<10.0) H 04/04/23 08:08 Impressions Chest X-Ray 04/04/23 08:07 XR chest 1V portable CLINICAL HISTORY: Chest pain, nonspecific TECHNIQUE: Single frontal radiograph of the chest was obtained. Comparison: None available at the time of this dictation. FINDINGS: No lines and tubes are seen. The cardiomediastinal silhouette is normal. The lungs are clear. No evidence of pleural effusion or pneumothorax. IMPRESSION: No acute chest disease. ACT 112: Negative or not required by law. Electronically signed by: Wyatt Camarena M.D. 04/04/2023 8:[address] 04/04/23 08:11 CT head/brain wo con CLINICAL HISTORY: ams Technique: Contiguous axial CT images of the head were acquired from the base of the skull to the vertex without intravenous contrast administration. Images were viewed in brain, subdural and bone windows. Automated dose lowering techniques and/or adjustment according to patient size were utilized for this exam. Comparison: Comparison is made to CT head 05/31/2019 Findings: The ventricles, basal cisterns, and cerebral sulci are normal. There is no acute intracranial hemorrhage or evidence of acute territorial infarction. Neither mass effect, shift of the midline structures, nor abnormal extra-axial fluid collections are shown. Imaged portions of the paranasal sinuses and mastoid air cells are clear. The orbits appear normal. There are no acute fractures of the calvaria or scalp swelling. Impression: No acute intracranial hemorrhage, no evidence of acute territorial infarction or other acute intracranial disease process. ACT 112: Negative or not required by law. Electronically signed by: Wyatt Camarena M.D. 04/04/2023 8:35 AM Shoulder X-Ray 04/04/23 08:29 LEFT SHOULDER 3 VIEWS CLINICAL HISTORY: Left shoulder pain. FINDINGS: 3 views of the left shoulder are compared to study dated 11/07/2019. The skeletal structures are well-mineralized. There is no radiographic evidence of fracture or dislocation. The glenohumeral and acromioclavicular joints are maintained. Mild arthritic change is seen at the glenohumeral articulation. The overlying soft tissues are within normal limits. Question mild airspace opacities in the left lung. IMPRESSION: 1. No acute bony abnormality is identified. 2. Question mild airspace opacities in the left lower lung. Correlate clinically for evidence of a mild pneumonitis. Electronically signed by: Elan Leija M.D. 04/04/2023 8:59 AM Diagnostic Findings Home Medications Medication Instructions Recorded Confirmed alprazolam 0.5 mg tablet 0.5 mg PO TID PRN Anxiety 04/04/23 04/04/23 dextromethorphan IR 45 1 tab PO DAILY 04/04/23 04/04/23 mg-bupropion ER 105 mg biphasic tablet (Auvelity) finasteride 1 mg tablet 1 mg PO DAILY 04/04/23 04/04/23 lamotrigine 100 mg tablet 100 mg PO DAILY 04/04/23 04/04/23 sildenafil 100 mg tablet 100 mg PO DAILY PRN Erectile 04/04/23 04/04/23 Dysfunction Medications Administered Current Inpatient Medications Acetaminophen (Acetaminophen 325 Mg Tab) 650 mg PO Q4H PRN PRN Reason: Pain or Fever Stop: 05/04/23 12:16 Alprazolam (Alprazolam 0.5 Mg Tablet) 0.5 mg PO TID PRN PRN Reason: Anxiety Stop: 05/04/23 12:16 Ampicillin Sodium/Sulbactam Sodium 3,000 mg/ Sodium Chloride 100 mls @ 100 mls/hr IV Q6H [place] Stop: 04/11/23 15:59 Lamotrigine (Lamotrigine 100 Mg Tab) 100 mg PO DAILY [facility]; Protocol Stop: 05/05/23 08:59 Miscellaneous (Auvelity: Order Awaiting Action) 1 each N/A QS [facility] Stop: 05/04/23 15:59 Non-Formulary Medication (Finasteride) 1 mg PO DAILY [facility] Stop: 05/05/23 08:59 Code Status & VTE Plan VTE Prophylaxis Plan VTE Prophylaxis will be ordered: Yes (5) Closed posterior dislocation of left shoulder Encounter type: initial encounter Qualified Code(s): S43.025A - Posterior dislocation of left humerus, initial encounter
--- NOTE | 2023-04-04 13:34 | Neurology Consultation ---
Date of Consultation April 04, 2023 Assessment & Plan (1) Seizure: Seizure like activity -possible provoked generalized seizure At this time provoking factors include polysubstance abuse, sleep deprivation, possible side effect of bupropion At this time recommend obtain MRI brain with and without contrast during this hospitalization Recommend obtain EEG Continue to provide seizure precautions Utilize benzodiazepines emergently for any breakthrough clinical seizure like activity Recommend continue lamotrigine, consider reduction/discontinuation of bupropion Recommend continue to monitor neurological assessments Obtain stat CT brain without contrast for any acute neurological decline Obtain toxicology screening Monitor renal and hepatic function Keep Euvolemic Continue metabolic workup Monitor for s/s of infection VTE prophylaxis Plan for outpatient follow up with Neurology Telehealth Consultation Telehealth Information Telehealth Information: I performed this visit using a real-time telehealth connection between my location and the patients location ([facility]). After connecting through interactive tele-video, patient was identified by name and date of and/or wristband check.Patient (or authorized healthcare ict sales representative) was informed that this was a telemedicine visit and it was being conducted confidentially over secure lines. My office door was closed and no one else was present in the room with me.Patient (or authorized healthcare ict sales representative) provided consent to proceed with the visit, expressed an understanding of privacy and security of the telemedicine visit, and gave permission to have a hospital ict sales representative in the room in order to assist with the visit and to conduct portions of the visit, as needed. I informed the patient (or authorized healthcare ict sales representative) that I reviewed their record and presented the opportunity for them to ask any questions regarding the visit today. The patient agreed to participate. History of Present Illness Reason for Consultation: Seizure Requesting Physician: Dr. Sotelo Attending Physician: Wilmar Sotelo MD History of Present Illness 37yo male with history of seizure reportedly provoked as per previous documentation review due to medication or substance withdrawal and/or provoked by polysubstance abuse also has hx of depression/possible mood disorder reportedly adherent with medications including lamotrigine was reportedly found at home appearing blue and not breathing. Per documentation review, EMS gained IV access and administered Narcan after which he reportedly awakened. He has undergone CT brain without contrast, personally reviewed revealing no overt evidence of acute intracranial abnormality. Performed televideo consultation. Patient sleeping but able to be awakened. He can provide history such that he reports last night having 4-5 [place] and 4 lines of what he believes was cocaine. He reports going home approximately 4am and shortly after being awakened by police and EMS. He reports his Father awakens early Am and he told him that he heard him making a snoring or choking sound and it kept recurring so his father checked on him found him cyanotic and believed he was seizing so activated EMS. Patient reports first episode of seizure believed to have happened in 2014. He reports being given laced medications from a pharmacy in [place]. He also reports taking lamotrigine and bupropion via combination medication at this time [facility]. He reports having been on Wellbutrin prior to [facility]. he reports only using alprazolam when under going stressful activity not using this medication regularly. There is no evidence of tongue biting; states he has never experienced tongue biting or loss of bowels or bladder during these seizure episodes. He reports a sore shoulder which he states usually happens after seizures. At this time appears drowsy. No apparent distress or discomfort. No reported cephalgia or cervicalgia Denies chest pain/palpitations or shortness of breath No reported changes in vision hearing dizziness or paresthesia Denies recent fevers chills nausea vomiting changes in bowels or bladder Denies recent medication changes, recent illness or sick contacts, no reported recent travel Allergies Allergy/AdvReac Type Severity Reaction Status Date / Time No Known Allergies Allergy Verified 07/03/22 14:48 Home Medications Medication Instructions Recorded Confirmed Type alprazolam 0.5 mg tablet 0.5 mg PO TID PRN Anxiety 04/04/23 04/04/23 History dextromethorphan IR 45 1 tab PO DAILY 04/04/23 04/04/23 History mg-bupropion ER 105 mg biphasic tablet ([facility]) finasteride 1 mg tablet 1 mg PO DAILY 04/04/23 04/04/23 History lamotrigine 100 mg tablet 100 mg PO DAILY 04/04/23 04/04/23 History sildenafil 100 mg tablet 100 mg PO DAILY PRN Erectile 04/04/23 04/04/23 History Dysfunction Patient History Medical History History of seizures Seizure Polysubstance abuse Surgical History No pertinent past surgical history Family History Grandmother (Maternal) Breast cancer Uncle Prostate cancer Other Colorectal cancer Denies family history of Ovarian cancer Myocardial infarction Social History Smoking Status: Current every day smoker Second Hand Exposure: No; Do You Dip or Chew Tobacco: No; Hx Alcohol Use: Yes Alcohol type: hard liquor Alcohol Intake Frequency: Monthly or Less Hx Substance Use: Yes Preferred Language: Tuvaluan Communication Ability: Effective Visual Impairment: No Limitations Hearing Ability: Normal Top Bottom Attaching Machine Operator Required: No Beliefs That Will Affect Care: None marital status: Single Current Living Situation: Family current occupational status: employed current occupation: Director of customer experience Feels Safe at Home: Yes Childhood Exposure to Second-Hand Smoke: No Diet: regular caffeine: No during the past year weight has: remained stable Dental Care, Regularly: Yes Physical Activity Frequency: 5-6 Times per Week Seatbelt Use: always Sunscreen Use: Yes Assistive Devices: None Physical Exam Neurological Examination: Mental Status: Awake and alert. Oriented to person, place, and time. Fluency naming repetition and comprehension appear grossly intact. Affect remains appropriate. CN testing: I: Denies changes in ability to smell II:Reports no changes in visual acuity III/IV/: No evidence of gaze preference, hippus, nystagmus or roving eye movements V: Facial sensation reportedly grossly intact to light touch bilaterally VII: Facial movements appear without evidence of asymmetry VIII: Hearing appears grossly intact to loud voice bilaterally IX/X: Palate appears to elevate symmetrically XI: Shoulder shrug appears symmetric/ grossly intact bilaterally XII: Tongue protrudes midline without evidence of biting Motor exam: Strength appears grossly intact/symmetric in all extremities Sensory: Sensation is reportedly grossly intact throughout Coordination: Finger to nose and heel to cassidy were intact. No apparent evidence of dysmetria or dysdiadochokinesia Reflexes: Deferred Gait: Deferred Results & Data Vital Signs (Past 12 Hours) Vital Signs Temp Pulse Resp BP Pulse Ox O2 Del Method O2 Flow Rate 04/04/23 12:49 37.0 C 04/04/23 12:20 111 H 17 111/76 95 Nasal Cannula 2 04/04/23 12:18 Room Air 04/04/23 12:00 121/81 04/04/23 11:30 128/86 91 Nasal Cannula 3 04/04/23 11:00 136/93 97 Nasal Cannula 3 04/04/23 10:30 120 H 18 90 04/04/23 10:30 123/75 04/04/23 10:20 117 H 17 92 04/04/23 10:10 121 H 14 90 04/04/23 10:00 127/81 04/04/23 10:00 122 H 15 93 04/04/23 09:50 121 H 18 92 04/04/23 09:40 121 H 13 92 04/04/23 09:30 120 H 18 92 04/04/23 09:30 136/75 04/04/23 09:21 93 Room Air 04/04/23 09:20 117 H 19 93 04/04/23 09:10 118 H 14 94 04/04/23 09:00 132/88 04/04/23 09:00 117 H 15 92 04/04/23 08:50 117 H 15 93 04/04/23 08:40 117 H 20 90 04/04/23 08:39 135/84 04/04/23 08:39 117 H 16 04/04/23 08:37 116 H 21 04/04/23 08:30 114 H 04/04/23 08:20 115 H 04/04/23 08:15 114 H 143/91 H 92 Room Air 04/04/23 08:04 118 H 153/99 H 92 Room Air 04/04/23 08:02 37.3 C 115 H 18 153/99 H 93 Room Air Laboratory Results Abnormal lab results 04/04/23 04/04/23 04/04/23 Range/Units 08:06 08:08 08:11 WBC 11.84 H (4.8-10.8) K/ul Neut # (Auto) 10.32 H (1.40-6.50) K/uL Lymph # (Auto) 0.78 L (1.20-3.40) K/uL VBG pH 7.22 L (7.36-7.41) VBG pCO2 72 H (38-50) mmHg POC Chloride 98 L (101-112) mmol/L Anion Gap 13 H (3-11) BUN/Creatinine Ratio 9.9 L (10-20) Glucose 114 H (70-99(Fasting)) mg/dl POC Glucose (other) 112 H (70-99) mg/dl POC Ioniz Calcium Ang 1.10 L (1.12-1.32) mmol/l AST 50 H (13-39) U/L Alkaline Phosphatase 147 H (34-104) U/L Troponin I High Sens 25.8 H (0-20) pg/ml Salicylates < 3.0 L (3.0-30) mg/dl Acetaminophen < 3 L (10-30) ug/ml Ethyl Alcohol mg/dL 15.9 H (<10.0) mg/dl 04/04/23 04/04/23 Range/Units 09:38 10:59 WBC (4.8-10.8) K/ul Neut # (Auto) (1.40-6.50) K/uL Lymph # (Auto) (1.20-3.40) K/uL VBG pH 7.32 L (7.36-7.41) VBG pCO2 60 H (38-50) mmHg POC Chloride (101-112) mmol/L Anion Gap (3-11) BUN/Creatinine Ratio (10-20) Glucose (70-99(Fasting)) mg/dl POC Glucose (other) (70-99) mg/dl POC Ioniz Calcium Ang (1.12-1.32) mmol/l AST (13-39) U/L Alkaline Phosphatase (34-104) U/L Troponin I High Sens 102.3 H* D (0-20) pg/ml Salicylates (3.0-30) mg/dl Acetaminophen (10-30) ug/ml Ethyl Alcohol mg/dL (<10.0) mg/dl Diagnostic Findings Chest X-Ray 04/04/23 08:07 XR chest 1V portable CLINICAL HISTORY: Chest pain, nonspecific TECHNIQUE: Single frontal radiograph of the chest was obtained. Comparison: None available at the time of this dictation. FINDINGS: No lines and tubes are seen. The cardiomediastinal silhouette is normal. The lungs are clear. No evidence of pleural effusion or pneumothorax. IMPRESSION: No acute chest disease. ACT 112: Negative or not required by law. Electronically signed by: Wyatt Camarena M.D. 04/04/2023 8:[address] 04/04/23 08:11 CT head/brain wo con CLINICAL HISTORY: ams Technique: Contiguous axial CT images of the head were acquired from the base of the skull to the vertex without intravenous contrast administration. Images were viewed in brain, subdural and bone windows. Automated dose lowering techniques and/or adjustment according to patient size were utilized for this exam. Comparison: Comparison is made to CT head 05/31/2019 Findings: The ventricles, basal cisterns, and cerebral sulci are normal. There is no acute intracranial hemorrhage or evidence of acute territorial infarction. Neither mass effect, shift of the midline structures, nor abnormal extra-axial fluid collections are shown. Imaged portions of the paranasal sinuses and mastoid air cells are clear. The orbits appear normal. There are no acute fractures of the calvaria or scalp swelling. Impression: No acute intracranial hemorrhage, no evidence of acute territorial infarction or other acute intracranial disease process. ACT 112: Negative or not required by law. Electronically signed by: Wyatt Camarena M.D. 04/04/2023 8:35 AM Shoulder X-Ray 04/04/23 08:29 LEFT SHOULDER 3 VIEWS CLINICAL HISTORY: Left shoulder pain. FINDINGS: 3 views of the left shoulder are compared to study dated 11/07/2019. The skeletal structures are well-mineralized. There is no radiographic evidence of fracture or dislocation. The glenohumeral and acromioclavicular joints are maintained. Mild arthritic change is seen at the glenohumeral articulation. The overlying soft tissues are within normal limits. Question mild airspace opacities in the left lung. IMPRESSION: 1. No acute bony abnormality is identified. 2. Question mild airspace opacities in the left lower lung. Correlate clinically for evidence of a mild pneumonitis. Electronically signed by: Elan Leija M.D. 04/04/2023 8:59 AM Medications Administered Home Medications Medication Instructions Recorded Confirmed Last Taken alprazolam 0.5 mg tablet 0.5 mg PO TID PRN Anxiety 04/04/23 04/04/23 Unknown dextromethorphan IR 45 1 tab PO DAILY 04/04/23 04/04/23 Unknown mg-bupropion ER 105 mg biphasic tablet (Au[facility]ity) finasteride 1 mg tablet 1 mg PO DAILY 04/04/23 04/04/23 Unknown lamotrigine 100 mg tablet 100 mg PO DAILY 04/04/23 04/04/23 Unknown sildenafil 100 mg tablet 100 mg PO DAILY PRN Erectile 04/04/23 04/04/23 Unknown Dysfunction
--- NOTE | 2023-04-04 15:13 | Electrocardiogram Report ---
Test Reason : Blood Pressure : / mmHG Vent. Rate : 118 BPM Atrial Rate : 118 BPM P-R Int : 160 ms QRS Dur : 092 ms QT Int : 328 ms P-R-T Axes : 070 091 047 degrees QTc Int : 459 ms Sinus tachycardia Rightward axis Nonspecific T wave abnormality Abnormal ECG When compared with ECG of 07-NOV-2019 15:43, ST no longer elevated in Inferior leads Non-specific change in ST segment in Lateral leads Nonspecific T wave abnormality now evident in Inferior leads Nonspecific T wave abnormality now evident in Lateral leads Confirmed by Kike Barrios ([id number]) on 04/04/2023 3:13:06 PM Referred By: Confirmed By:Kike Barrios
[2023-04-04] MEDS: AMPICILLIN/SULBACTAM SOD 3,000 MG in SODIUM CHLOR 0.9% MINI-B 100 ML IV SCH ×2 (18:22→23:16)
[2023-04-04] MEDS: ALPRAZolam 0.5 MG TABLET PO PRN (22:34)
[2023-04-05] MEDS: AMPICILLIN/SULBACTAM SOD 3,000 MG in SODIUM CHLOR 0.9% MINI-B 100 ML IV SCH ×2 (03:46→08:23)
--- NOTE | 2023-04-05 07:24 | Hospitalist Progress Note ---
Date of Service April 05, 2023 Assessment & Plan (1) Aspiration pneumonia: (2) Seizure: (3) Anxiety: (4) Myalgia: (5) Closed posterior dislocation of left shoulder: (6) Polysubstance abuse: Plan Admit to [facility] with telemetry Seizure precautions Vital signs protocol Activity as tolerated Regular diet Neurology consult with EEG ordered Continue Wellbutrin and dextromethorphan, Lamictal, Xanax. Concerns for aspiration pneumonia will empirically start on Zosyn at this time. Reviewed chest x-ray which is negative for infiltrate. CODE STATUS patient is a full code Discussed with patient the need for admission. Patient agrees. At this time recommend obtain MRI brain with and without contrast during this hospitalization Recommend obtain EEG Continue to provide seizure precautions Utilize benzodiazepines emergently for any breakthrough clinical seizure like activity Recommend continue lamotrigine, consider reduction/discontinuation of bupropion Recommend continue to monitor neurological assessments Obtain stat CT brain without contrast for any acute neurological decline Obtain toxicology screening Monitor renal and hepatic function Keep Euvolemic Continue metabolic workup Monitor for s/s of infection VTE prophylaxis Admission and Anticipated Discharge Date Admission Date: April 04, 2023 Results & Data Results & Data Vital Signs (Past 12 Hours) Vital Signs Temp Pulse Pulse Resp BP Pulse Ox O2 Del Method 04/05/23 03:18 36.6 C 84 20 103/67 94 Room Air 04/04/23 22:41 Room Air 04/04/23 22:23 78 04/04/23 22:16 36.6 C 85 16 126/75 95 Room Air Diagnostic Findings CXR 04/04 with LLL signs of pneumonitis/airspace opacities CT head without signs of infarction, mass effect, or other acute intracranial process (1) Aspiration pneumonia Aspiration pneumonia type: unspecified Laterality: unspecified laterality Lung location: unspecified part of lung Qualified Code(s): J69.0 - Pneumonitis due to inhalation of food and vomit (5) Closed posterior dislocation of left shoulder Encounter type: initial encounter Qualified Code(s): S43.025A - Posterior dislocation of left humerus, initial encounter
[2023-04-05 07:47] LABS: Hematocrit (blood only) 40.1 % (42.0-52.0); Hemoglobin 13.8 g/dl (14.0-18.0); Mean Corpuscular Hemoglobin 30.7 pg (25.0-34.0); Mean Corpuscular Hgb Conc 34.4 g/dL (32.0-36.0); Mean Corpuscular Volume 89.3 fL (80.0-100.0); Mean Platelet Volume 9.6 fL (9.4-12.4); Platelet Count 213 K/uL (130-400); RDW Coefficient of Variation 11.9 % (11.5-14.5); RDW Standard Deviation 38.5 fL (36.4-46.3); Red Blood Count 4.49 M/uL (4.70-6.10); White Blood Count 7.32 K/ul (4.8-10.8)
[2023-04-05 08:20] LABS: BUN Creatinine Ratio 10.9 (10-20); Calcium 8.8 mg/dl (8.6-10.3); Creatinine Clr Calc Pharmacy 93.9 ml/min; Est GFR (African American) 121.9 ml/min; Est GFR (Non-African American) 105.1 ml/min; Potassium 4.3 mmol/L (3.5-5.1)
[2023-04-05] MEDS ORDERED: oxyCODONE/ACETAMINOPHEN 5mg/325mg TAB PO PRN (08:20)
[2023-04-05] MEDS ORDERED: KETOROLAC TROMETHAMINE 15 MG/ML VIAL IV ONE (08:22)
[2023-04-05] MEDS: ALPRAZolam 0.5 MG TABLET PO PRN ×2 (08:23→15:19)
[2023-04-05] MEDS ORDERED: lamoTRIgine 100 MG TAB PO SCH (09:00)
[2023-04-05] MEDS ORDERED: DICLOFENAC SOD 1% GEL 100 GM TUBE EXT SCH (09:00)
[2023-04-05] MEDS ORDERED: GADOBUTROL 65ML VIAL IV ONE (14:11)
--- NOTE | 2023-04-05 14:55 | Magnetic Resonance Report ---
Brain MRI WITH AND WITHOUT CONTRAST HISTORY: seizure TECHNIQUE: Multiplanar multisequence MRI of the brain was performed both before and after the intrave nous administration of contrast. COMPARISON STUDY: Head CT 04/04/2023. FINDINGS: There are no areas of restricted diffusion to suggest acute infarction. The midline structu res are intact. The mastoid air cells are clear. The ventricles and sulci are within normal limits fo r age. There is no mass, hematoma, midline shift. The major vascular flow-voids at the skull base are well maintained. Postcontrast sequences show no areas of abnormal enhancement. The temporal lobes ar e symmetric. No evidence for ramey matter heterotopia. Mild mucosal thickening within the maxillary si nuses and a few partially opacified ethmoid air cells. IMPRESSION: No acute intracranial abnormality. ACT 112: Negative or not required by law. Electronically signed by: Guillermo Potts M.D. 04/05/2023 2:53 PM
--- NOTE | 2023-04-05 15:21 | Discharge Summary ---
Discharge Summary Date of Service April 05, 2023 Notes For Next Care Provider Plan for Neurology OP follow up Medication Changes From Visit Discontinued bupropion-dextromethorphan Restarted Lamictal 100mg daily Admission HPI Per Admitting Provider 36-year-old gentleman history of seizures, history of anxiety on benzodiazepines, polysubstance abuse, history of depression very bipolar presented to the ER after an episode of seizures. Seizures happened at home. Patient was found not to be breathing blue and cyanotic with a pulse ox of 40- 50. He was brought in by EMS and had to be given a dose of Narcan. Patient was initially noted to be very confused. Denies any chest pain shortness of breath headache or changes in vision at that time. Patient has history of alcohol use and admitted to using cocaine the previous night till 3 AM. Initial evaluation done in the ER, seizure precautions and initial CT scan showed no evidence of bleed or any abnormal findings. Patient agrees to stay in the hospital for further evaluation including EEG and a neurology checkup. Also noted that patient was started on Unasyn for concerns of aspiration. Noted that patient has been on Wellbutrin for some time along with dextromethorphan. Admission Exam Per Admitting Provider HEENT:No JVD , Normocephalic , atraumatic CV: S1/S2+ , no murmurs Resp: Air entry present bilaterally.no crackles, no wheeze . GI: Abdomen soft non tender . Musculoskeletal: examined for joint tenderness. Left shoulder joint pain noted. patient has chronic shoulder dislocation issues which gets aggravated during seizure episodes Skin: no rashes Psych: Normal affect Neuro: Patient is awake alert not in distress , No focal neuro deficits noted Ext: no edema. Principal Dx & Hospital Course #1 = Principal Diagnosis (1) Aspiration pneumonia: (2) Seizure: (3) Anxiety: (4) Myalgia: (5) Closed posterior dislocation of left shoulder: (6) Polysubstance abuse: Plan Mr. Gamble is a 37yo male with history of major depressive disorder, anxiety, polysubstance abuse c/b seizures admitted on 04/04 for reportedly provoked seizure. Patient has history of being found down/seizure like activity after days of "no sleep, cocaine, and alcohol" per patient. Patient no longer on lamictal for 1 month time and transitioned to Aveulity (bupropion-dextromethorphan) Per documentation review, EMS gained IV access and administered Narcan after which he reportedly awakened. He has undergone CT brain without contrast, personally reviewed revealing no overt evidence of acute intracranial abnormality. MRI obtained on 04/05 without any acute abnormality. Tigertext conversation had with Dr. Rice who recommended discontinuation of bupropion and resumption of Lamictal. Over 45 minutes spent with patient discussing substance use--patient verbalized remarkable reasoning and understanding of destructive habits, stating that he is very aware he should taper alcohol and discontinue recreational substances, even remarked he should seek alternative friend groups and displays remorse for "pain on parents" having to witness his behaviors/seizures. On day of discharge, patient reports left shoulder pain which is chronic in nature. Chart review notes surgical intervention offered in 09/2022, patient declined. Recommended sling and conservative management and follow up with OP Ortho as current admission is not ideal for any surgical intervention. Patient verbalized understanding. #Provoked Seizure #Polysubstance abuse -Imaging negative for intracranial abnormality -Discontinued bupropion -Resumed Lamictal 100mg daily (discontinued 1 month prior per patient) -Neurology OP follow up -Discussed at length resources and encouraged cessation, patient declined further assistance while admitted #Demand ischemia -Trop elevated, likely iso polysubstance abuse, seizure, acute hypoxia in field -EKG with out ischemic changes, trop downtrending -No chest pain #LLL infiltrate Denies cough, fevers, chills, likely pneumonitis -No further antibiotics upon discharge #Major depressive disorder #Anxiety -discontinue bupropion -Patient scheduling follow up with OP Psych #Recurrent left should dislocations Shoulder Xray stable on admission Encouraged conservative management and Ortho follow up Discussed the need to avoid recreational substances, especially if considering surgical intervention in future On day of discharge, patient denied any neurologic concerns like headache, further seizure activity. Patient reported chronic baseline pain in left shoulder. Discharge Exam Constitutional WD/WN, vitals as above Respiratory normal respiratory effort, lungs clear to auscultation Cardiovascular RRR, no murmur, no edema Musculoskeletal moving all extremities equally; Able to lift left arm above head and move shannon ulder/roll shoulder with facial grimace however smooth range of motion Updated Medication List Medication Instructions Recorded Confirmed Type alprazolam 0.5 mg tablet 0.5 mg PO TID PRN Anxiety 04/04/23 04/04/23 History finasteride 1 mg tablet 1 mg PO DAILY 04/04/23 04/04/23 History sildenafil 100 mg tablet 100 mg PO DAILY PRN Erectile 04/04/23 04/04/23 History Dysfunction lamotrigine 100 mg tablet 100 mg PO DAILY #30 tabs 04/05/23 Rx Hospital Stay Data Consultations 04/04/23 09:34 ED Decision to Admit Stat 04/04/23 12:17 Consult Neurology Routine Diagnostic Imagining Performed 04/04/23 08:11 CT head/brain wo con Stat 04/05/23 09:25 MR brain wo/w con Urgent Pending Results Patient Have Any Pending Studies at Discharge: No Discharge Instructions Given to Patient (Per Discharging Provider) You were admitted after being found down, blue, and with poor oxygenation after reported drug/alcohol use. You have reported history of seizures in similar settings. Neurology evaluated you and recommends you resume Lamictal 100mg daily. Neurology recommends discontinuing Auvelity, as bupropion reduces seizure threshold--increasing propensity for you to experience seizures when participating in recreational drug use/alcohol. It is strongly recommended you discontinue agents like cocaine, or other recreational drugs. It is encouraged that you continue to participate in your outpatient support groups. Please note there are many options to aid you in sobriety and you do not need to do this alone. You will need to follow up with Neurology in 1-2 weeks. A request for sooner orthopedic appointment was made and working to be coordinated. Total Time Total Time Spent Total Time Spent (In Minutes): 55
--- NOTE | 2023-04-05 22:56 | Electroencephalogram ---
EEG Procedure Note Date of Service April 05, 2023 Start / End Times Start Time: 06:37 End Time: 06:57 Referring Physician CHE Keller History A 37 year old male with seizure and polysubstance abuse. EEG performed for evaluation of epileptiform activity. Home Medication List Medication Instructions Recorded Confirmed Type alprazolam 0.5 mg tablet 0.5 mg PO TID PRN Anxiety 04/04/23 04/04/23 History finasteride 1 mg tablet 1 mg PO DAILY 04/04/23 04/04/23 History sildenafil 100 mg tablet 100 mg PO DAILY PRN Erectile 04/04/23 04/04/23 History Dysfunction lamotrigine 100 mg tablet 100 mg PO DAILY #30 tabs 04/05/23 Rx Inpatient Medication List Discontinued Medications Alprazolam (Alprazolam 0.5 Mg Tablet) 1 mg PO ONE ONE Stop: 04/04/23 12:07 Last Admin: 04/04/23 12:21 Dose: 1 mg Documented By: AMRIK Alprazolam (Alprazolam 0.5 Mg Tablet) 0.5 mg PO TID PRN PRN Reason: Anxiety Stop: 05/04/23 12:16 Last Admin: 04/05/23 15:19 Dose: 0.5 mg Documented By: Admin: 04/05/23 08:23 Dose: 0.5 mg Documented By: Admin: 04/04/23 22:34 Dose: 0.5 mg Documented By: ARABELLA Gadobutrol (Gadobutrol 65ml Vial) 6 ml IV ONCE ONE Stop: 04/05/23 14:12 Last Admin: 04/05/23 14:11 Dose: 6 ml Documented By: MLD Sodium Chloride (Nss) 1,000 mls @ 999 mls/hr IV .Q1H1M [place] Stop: 04/04/23 10:15 Last Infusion: 04/04/23 10:32 Dose: Infused Documented By: Admin: 04/04/23 09:26 Dose: 999 mls/hr Documented By: Infusion: 04/04/23 09:23 Dose: Infused Documented By: Admin: 04/04/23 08:12 Dose: 999 mls/hr Documented By: MMZ Ampicillin Sodium/Sulbactam Sodium 3,000 mg/ Sodium Chloride 100 mls @ 200 mls/hr IV NOW STA Stop: 04/04/23 10:03 Last Infusion: 04/04/23 10:53 Dose: Infused Documented By: Admin: 04/04/23 10:03 Dose: 200 mls/hr Documented By: FIFI Ampicillin Sodium/Sulbactam Sodium 3,000 mg/ Sodium Chloride 100 mls @ 100 mls/hr IV Q6H [place] Stop: 04/11/23 15:59 Last Admin: 04/05/23 08:23 Dose: 100 mls/hr Documented By: Infusion: 04/05/23 04:43 Dose: Infused Documented By: Admin: 04/05/23 03:46 Dose: 100 mls/hr Documented By: Infusion: 04/05/23 00:19 Dose: Infused Documented By: Admin: 04/04/23 23:16 Dose: 100 mls/hr Documented By: Infusion: 04/04/23 19:45 Dose: Infused Documented By: Admin: 04/04/23 18:22 Dose: 100 mls/hr Documented By: TEDDY Ketorolac Tromethamine (Ketorolac Tromethamine 15 Mg/Ml Vial) 10 mg IV NOW ONE Stop: 04/05/23 08:23 Last Admin: 04/05/23 08:57 Dose: 10 mg Documented By: MIGUEL Lamotrigine (Lamotrigine 100 Mg Tab) 100 mg PO DAILY [facility]; Protocol Stop: 05/05/23 08:59 Last Admin: 04/05/23 08:23 Dose: 100 mg Documented By: MIGUEL Mistayoaneous (Auvelity: Order Awaiting Action) 1 each N/A QS [facility] Stop: 05/04/23 15:59 Last Admin: 04/04/23 23:17 Dose: Not Given Documented By: Admin: 04/04/23 17:36 Dose: Not Given Documented By: TEDDY Carlsonaneous (Finasteride 1 Mg: Order Awaiting Action) 1 each N/A QS [facility] Stop: 05/04/23 15:59 Last Admin: 04/04/23 23:17 Dose: Not Given Documented By: Admin: 04/04/23 17:36 Dose: Not Given Documented By: TEDDY Oxycodone/Acetaminophen (Oxycodone/Acetaminophen 5mg/325mg Tab) 1 tab PO Q4H PRN PRN Reason: Severe Pain (Scale 7, 8, 9,10) Stop: 04/19/23 08:19 Last Admin: 04/05/23 08:56 Dose: 1 tab Documented By: MIGUEL Description This is a 21 electrode EEG with a single channel dedicated to limited EKG. The electrodes were placed in accordance with the International 10-20 system. REPORT: At the onset of the EEG the patient is drowsy. The background is continuous and appears symmetric. The background consist of low amplitude fast frequencies with some intermixed theta activity. No stage II sleep transients are seen. Interpretation IMPRESSION: This is a normal awake and drowsy routine EEG. Excessive beta activity is a normal variant and likely secondary to medications (ie benzodiazepines). No epileptiform activity is seen.
== END 2023-04-05 15:54 | disposition home or self-care (01) ==
LOC: ED 07:59 → INTOOBSV 11:02 → EDINP 11:02 → SUATTDRO 11:02 → 4W 12:18